=== PATIENT | male | born 1955 | race Caucasian/White ===

== ENCOUNTER 2019-11-06 11:12 | Outpatient (CLI) | payer OTHER, MEDICARE, SELFPAY ==
[2019-11-06 11:59] LABS: Alanine Aminotransferase 47 U/L (4-50); Albumin Level 4.2 g/dL (3.5-5.1); Alkaline Phosphatase 171 U/L (38-126); Aspartate Amino Transferase 30 U/L (17-59); Bilirubin,Total 0.2 mg/dL (0.2-1.3); Blood Urea Nitrogen 14 mg/dL (9-20); Calcium 10.1 mg/dL (8.4-10.2); Carbon Dioxide 26 mmol/L (22-30); Chloride 101 mmol/L (98-107); Estimated Glomerular Filt Rate > 60; Glucose 133 mg/dL (75-110); Potassium 4.4 mmol/L (3.4-5.0); Sodium 139 mmol/L (137-145)
[2019-11-06 12:18] LABS: Hemoglobin A1C 7.4 % (<5.7)
== END 2019-11-06 11:13 | disposition home or self-care (01) ==
LOC: ANHLAB 11:16
PROVIDERS: PCP Family Medicine; Visit Provider Family Medicine
DX: E11.65 Type 2 diabetes mellitus with hyperglycemia (principal)
CPT/HCPCS: 36415; 80053; 83036

== ENCOUNTER 2019-11-08 00:52 | Day surgery (SDC) | payer OTHER, MEDICARE, SELFPAY ==
[2019-11-06 13:26] VITALS: BMI 37.1
[2019-11-08] VITALS (7 sets, daily range): BP systolic 105–131; BP diastolic 60–66; PULSE 75–80; RESP 14–20; TEMP 36.4; O2SAT 93–99
--- NOTE | ~2019-11-08 | XR_ITS ---
EXAMINATION: XR foot RT min 3V DATE: 11/08/2019 09:00 INDICATION: First ray amputation. TECHNIQUE: 4 views of right foot were obtained. COMPARISON: Right foot radiographs 10/03/2019 FINDINGS: There are changes of amputation of right great toe. There are erosions at the head of the f irst metacarpal. There is mild osteoarthritis of many of the interphalangeal joints and midfoot joint s. IMPRESSION: 1. Erosions of the head of the first metatarsal, which may be osteomyelitis and/or surgical change. Reviewed, dictated and finalized at location A. TER (CAD) ELECTRONIC IMPRESSION: 1. Erosions of the head of the first metatarsal, which may be osteomyelitis and /or surgical change.
--- NOTE | 2019-11-08 07:25 | WPDHPUPDATE1 ---
History and Physical Update Update Date/Time: 11/08/19 07:25 History and Physical has been reviewed, including an updated exam of the patient. There are NO changes in the patient's condition. Risks, benefits, and alternatives have been discussed and questions answered. Patient agrees to proceed with procedure.
--- NOTE | 2019-11-08 09:54 | WPDANESEPPF ---
Anes - Initial Pre Proc Eval Procedure: Operation Date: 11/08/19 10:30 Proposed Procedures p Revision Right First Ray Amputation, Debridement Right Diabetic Foot Ulcer with Wound Vac Placement - Jeffrey Louise MD Date/Time: 11/08/19 09:54 Surgeon: Jeffrey Louise MD Pre Op Diagnosis: Right Hallux Wound Dehiscence, right hallux diab Patient Data Age: 64 Gender: M Height: 1.68 m Weight: 104.33 kg Allergies Allergy/AdvReac Type Severity Reaction Status Date / Time imipenem Allergy Mild Itching Verified 11/06/19 13:28 gabapentin Allergy Unknown GOES Verified 11/06/19 13:28 CRAZY PER SPOUSE pregabalin Allergy Unknown GOES Verified 11/06/19 13:28 CRAZY PER SPOUSE Iodinated Contrast Media AdvReac N/V Verified 11/06/19 13:48 iohexol AdvReac n/v Verified 11/06/19 13:48 [From CONTRAST - CT, XRAY] Home Medications Medication Instructions Recorded Confirmed Type Tresiba U-100 Insulin 22 unit SUBCUT HS 10/03/19 11/06/19 History albuterol sulfate [Ventolin HFA] 1 inh INHALATION QID PRN 10/03/19 11/06/19 History amitriptyline 25 mg PO HS 10/03/19 11/06/19 History aspirin [Adult Low Dose Aspirin] 81 mg PO DAILY 10/03/19 11/06/19 History carvedilol 25 mg PO Q12H 10/03/19 11/08/19 History cholecalciferol (vitamin D3) 400 unit PO DAILY 10/03/19 11/06/19 History [Vitamin D3] diltiazem HCl 300 mg PO DAILY 10/03/19 11/08/19 History fluticasone propionate 1 inh INHALATION Q12H PRN 10/03/19 11/06/19 History fluticasone propionate [Flonase 2 spray INTRANASAL DAILY PRN 10/03/19 11/06/19 History Allergy Relief] insulin aspart U-100 [Novolog See Rx Instructions .ROUTE .COMPLEX 10/03/19 11/06/19 History U-100 Insulin aspart] montelukast [Singulair] 10 mg PO DAILY 10/03/19 11/06/19 History rosuvastatin 40 mg PO DAILY 10/03/19 11/06/19 History sitagliptin 50 mg tablet 100 mg PO DAILY #90 tablet 10/03/19 11/06/19 Rx vitamin B complex [B 1 tablet PO DAILY 10/03/19 11/06/19 History Complex-Vitamin B12] alprazolam 0.25 mg tablet 0.25 mg PO TID PRN #120 tablet 10/30/19 11/08/19 Rx furosemide 40 mg tablet 40 mg PO BID 11/02/19 11/06/19 History Patient hx anesthesia problems: none Family hx anesthesia problems: none [facility] Past Medical History Medical History (Updated 11/08/19 @ 09:57 by Lester Blake MD) Alcohol abuse Amputation toe Anxiety Cardiomyopathy CHF (congestive heart failure) COPD (chronic obstructive pulmonary disease) COPD with asthma PFTs in June 2017 showed a discrepancy between FVC and VC consistent with dynamic air trapping. He did have an acute bronchodilator response. Coronary artery disease involving [place] heart without angina pectoris Diabetes 1.5, managed as type 2 Diabetic foot ulcer associated with diabetes mellitus due to underlying condition Diabetic peripheral neuropathy Diabetic polyneuropathy associated with type 2 diabetes mellitus Grade II diastolic dysfunction Pseudonormal diastolic dysfunction grade 2 noted on echocardiogram in June 2017 with ejection fraction of 55%. History of amputation of hallux History of Clostridioides difficile colitis With what sounds like toxic megacolon requiring emergent surgery and total colectomy. History of osteomyelitis Requiring several amputations and subsequent left [id number] amputation. History of shingles Hyperlipidemia Hypertension Insulin dependent diabetes mellitus Complicated by diabetic neuropathy. Hemoglobin A1c was 6.9 in April 2018. Long-term insulin use Multinodular goiter Status post fine-needle aspiration in April 2019, consistent with benign follicular nodule Obstructive sleep apnea treated with BiPAP Paroxysmal atrial fibrillation Peripheral vascular disease Followed by Dr. Mohr in [place]. Surgical History Surgical History History of ileostomy History of inguinal herniorrhaphy Status post below-knee amputation of left lower ext
[2019-11-08 10:29] LABS: Glucose Point of Care 161 (65-105)
[2019-11-08] MEDS: LACTATED RINGERS 1,000 ML 30 ML IV CONT (10:30)
[2019-11-08] MEDS: IBUPROFEN IV 800 MG/200 ML 800 MG/200 ML BAG 400 MG IVPB (10:54)
--- NOTE | 2019-11-08 10:57 | SUR.PREOP ---
1020- ELIZABETH CALLED TO COME SEE PT FOR A IV. 1030- LT FA 20 G PLACED. YESSENIA FROM WOUND CARE CAME TO BRING PT A WOUND VAC WITH SUPPLIES. SPOKE WITH YESSENIA.
[2019-11-08] MEDS: ceFAZolin 2 GM/D5W 50 ML 2 GM/50 ML BAG IVPB (11:03)
[2019-11-08 12:31] LABS: Glucose Point of Care 142 (65-105)
--- NOTE | 2019-11-08 12:36 | P.OP_ITS ---
Procedure Note - Detailed Date of procedure: 11/08/19 Pre-op diagnosis: Right Hallux Wound Dehiscence, right hallux diab Post-op diagnosis: same Procedure performed: Revision right 1st ray amputation, debridement diabetic foot ulcer, application of wound VAC. Description of procedure: Indications: Patient is 64-year-old gentleman with peripheral arterial disease status post left below-knee amputation secondary to left foot gangrene. Developed gangrene of the right hallux. Underwent right hallux amputation 5 weeks ago. Surgery complicated by wound dehiscence and poor wound healing. Now with exposure of the and of the 1st metatarsal and open wound. Presents now for revision amputation and operative treatment. Patient identified in the preoperative holding. Informed consent given. Operative extremity marked. Patient received intravenous antibiotics. Patient brought to the operating room where underwent general anesthetic by anesthesia team. Positioned supine on operating room table. Time-out performed confirming the patient, site of the surgery and the plan. Right lower extremity prepped and draped in usual sterile surgical fashion using a Betadine prep solution. Due to the 1st metatarsal bone exposed through the wound dehiscence the plan was for revision 1st ray amputation. Longitudinal incision made over the dorsomedial aspect of the 1st metatarsal extending to the distal wound dehiscence with a 15 blade knife. Soft tissue carefully and sharply elevated circumferentially around the 1st metatarsal at the proximal 1/3 diaphyseal level. Sagittal saw used to transect the metatarsal which was then brought out of the wound distally. Medial and lateral sesamoids and flexor tendon also sharply excised and removed. Wound thoroughly irrigated and incision closed with 0 Prolene interrupted suture without tension or pressure on the skin. Excisional debridement of the diabetic foot ulcer and wound dehiscence then performed. Fifteen blade knife and rongeur used to sharply excise skin, subcutaneous tissue and muscle that was devitalized or nonviable in a circumferential fashion from the open wound. Tissue passed off. Wound thoroughly irrigated with antibiotic solution. Wound then addressed with a black foam wound VAC assisted dressing. Complete seal intact and ensured. Gauze dressing then applied over. Patient awoke from anesthesia, extubated and taken to the recovery room in stable condition. All sponge needle and instrument counts correct in the case. Implants: Wound VAC dressing Anesthesia: GLMA Surgeon: Jeffrey Louise MD Watch Repairer Apprentice: 1st visual merchandising assistant Estimated blood loss (mL): 50 Tourniquet time (min): 0 Drains: Yes (Wound VAC) Packing: Yes (Wound VAC) Pathology: none sent Complications: None Condition: stable Disposition: PACU Findings: Wound dehiscence with devitalized skin and soft tissue 1st ray/hallux. Proximal metatarsal transection with good bleeding bone surface and good bleeding soft tissue surrounding at that level. Remaining skin with good blood flow.
== END 2019-11-08 14:20 | disposition home or self-care (01) ==
PROVIDERS: PCP Family Medicine; Visit Provider Orthopaedic Surgery
PROC: (CPT 28810; principal; 2019-11-08 10:30)
DX: T81.31XA Disruption of external operation (surgical) wound, not elsewhere classified, initial encounter (principal); E13.621 Other specified diabetes mellitus with foot ulcer; L97.519 Non-pressure chronic ulcer of other part of right foot with unspecified severity; Y83.8 Other surgical procedures as the cause of abnormal reaction of the patient, or of later complication, without mention of misadventure at the time of the procedure; E13.42 Other specified diabetes mellitus with diabetic polyneuropathy; E13.51 Other specified diabetes mellitus with diabetic peripheral angiopathy without gangrene; I11.0 Hypertensive heart disease with heart failure; I50.30 Unspecified diastolic (congestive) heart failure; I48.0 Paroxysmal atrial fibrillation; J44.9 Chronic obstructive pulmonary disease, unspecified; I25.10 Atherosclerotic heart disease of native coronary artery without angina pectoris; E78.5 Hyperlipidemia, unspecified; G47.33 Obstructive sleep apnea (adult) (pediatric); Z79.4 Long term (current) use of insulin; Z79.82 Long term (current) use of aspirin; Z89.512 Acquired absence of left leg below knee; Z90.49 Acquired absence of other specified parts of digestive tract; Z87.891 Personal history of nicotine dependence; E66.9 Obesity, unspecified; Z68.37 Body mass index [BMI] 37.0-37.9, adult
CPT/HCPCS: 28810; 11042; 73630; A9270; J0690; J1100; J1170; J1741; J2250; J2405; J2704; J3010; J7120

== ENCOUNTER 2019-11-19 07:00 | Outpatient (RCR) | payer OTHER, MEDICARE, SELFPAY ==
[2019-09-21 15:30] VITALS: BMI 38.3
--- NOTE | 2019-10-23 11:01 | P.PNOP_ITS ---
Progress Note: A&P Assessment and Plan (1) Amputation toe: Qualifiers: Laterality: right Qualified Code(s): S98.131A - Complete traumatic amputation of one right lesser toe, initial encounter Code(s): S98.139A - Complete traumatic amputation of one unspecified lesser toe, initial encounter Status: Acute Assessment and Plan: [facility] wound clinic evaluation 2 weeks, 4 days s/p right hallux amputation. Incision with necrotic tissue and mild redness which is relieved with elevation, no warmth. No purulence. No malodor. Mild serousanguinous drainage. Sutures removed. No visible bone but able to probe to bone. Patient denies signs of infection including nausea, vomiting, diarrhea, fever and chills. Recommended beginning daily dressing changes with Santyl, vaseline gauze and cover dry. Fracture boot. Minimal weight bearing. Discussed possible need for further debridement in the future, verbalized understanding. Will continue to monitor at this time. Follow up in 1 week. Subjective Subjective Date/Time Seen: 10/23/19 11:01 2 weeks, 4 days s/p RIGHT hallux amputation. Patient feeling well. No complaints of abdominal pain at this time. Review of Systems Constitutional: Constitutional: Denies chills, Denies fatigue and Denies weakness Cardiovascular: Cardiovascular: Denies chest pain Respiratory: Respiratory: Reports no additional respiratory complaints and Denies dyspnea Gastrointestinal: Gastrointestinal: Denies abdominal pain, Denies bloating, Denies diarrhea, Denies nausea and Denies vomiting Genitourinary: Genitourinary: Reports no additional male genitourinary com plaints Musculoskeletal: Musculoskeletal: Reports numbness (baseline neuropathy ) and Reports tingling (baseline neuropathy ) Comments: No pain right foot Exam Const: General: comfortable and no acute distress HENMT: Mouth: Yes moist mucous membranes Eyes: General: appearance normal, both eyes and all related structures Neck: Neck: supple and no JVD Resp: Effort & Inspection: normal respiratory effort Cardio: Rate: regular rate Rhythm: regular rhythm GI: GI Palp: Yes Soft to palpation Other: Well-healed mid abdominal scar. Ileostomy Right Middle Quadrant Skin: General skin exam: erythema Wounds: wounds noted Other: See extremity exam Neuro: Cognition (Neuro): normal cognition Speech: normal speech Sensory Exam: No normal sensation Extrem: Right lower extremity: hip/thigh, knee, lower leg and foot Left lower extremity: hip/thigh, knee and lower leg (BKA ) Other: Right hallux amp incision with surrounding necrotic tissue. Sutures removed. No visible bone but able to probe to bone. Santyl, vaseline gauze dressing applied to right hallux. Mild serousanguinous drainage. Right heel without signs of infection. Left BKA. Incision well-healed. No signs of infection. Psych: Mental Status: mental status grossly normal Objective Data Meds/Results Medications: Active Medications Generic Name Dose Route Start Last Admin Trade Name Freq PRN Reason Stop Dose Admin Collagenase 1 applic 09/21/19 14:53 Santyl Oint TOPICAL 12/21/19 10:00 PRN PRN Wound Care Wound Care/Dressing Products 2 each 09/21/19 14:54 Mepilex 4x4 Foam Bandage TOPICAL 12/21/19 10:00 PRN PRN Wound Care
--- NOTE | 2019-11-12 12:28 | PM.PNORT ---
Progress Note: A&P Assessment and Plan (1) Diabetic polyneuropathy associated with type 2 diabetes mellitus: Code(s): E11.42 - Type 2 diabetes mellitus with diabetic polyneuropathy Status: Acute (2) Diabetic foot ulcer associated with diabetes mellitus due to underlying condition: Qualifiers: Diabetic foot ulcer location: toe Laterality: right Non-pressure ulcer stage: with bone involvement without evidence of necrosis Qualified Code(s): E08.621 - Diabetes mellitus due to underlying condition with foot ulcer; L97.516 - Non-pressure chronic ulcer of other part of right foot with bone involvement without evidence of necrosis Code(s): E08.621 - Diabetes mellitus due to underlying condition with foot ulcer; L97.509 - Non-pressure chronic ulcer of other part of unspecified foot with unspecified severity Status: Acute Assessment and Plan: Postop day number for right 1st ray revision amputation and placement of wound VAC. Patient presented today with problems of his wound VAC. The wound VAC dressing was changed. The amputation site appears viable. New wound VAC dressing applied. Plan for Tuesday wound VAC dressing changes. May continue with partial weight-bearing on the heel only with postoperative shoe. Reinforced need for elevation and pressure offloading for most of the time. Patient and family verbalized understanding. (3) Peripheral vascular disease: Code(s): I73.9 - Peripheral vascular disease, unspecified Status: Acute Subjective Subjective Date/Time Seen: 11/12/19 10:30 Patient telephone the office notifying of the wound VAC on the right foot was occluded and not functioning. Patient directed to present to the wound clinic for evaluation. No other complaints. No fever chills. Minimal pain. Review of Systems Constitutional: Constitutional: Denies chills, Denies fatigue and Denies weakness Cardiovascular: Cardiovascular: Denies chest pain Respiratory: Respiratory: Reports no additional respiratory complaints and Denies dyspnea Gastrointestinal: Gastrointestinal: Denies abdominal pain, Denies bloating, Denies diarrhea, Denies nausea and Denies vomiting Genitourinary: Genitourinary: Reports no additional male genitourinary complaints Musculoskeletal: Musculoskeletal: Reports numbness (baseline neuropathy ) and Reports tingling (baseline neuropathy ) Comments: No pain right foot Exam Const: General: comfortable and no acute distress HENMT: Mouth: Yes moist mucous membranes Eyes: General: appearance normal, both eyes and all related structures Neck: Neck: supple and no JVD Resp: Effort & Inspection: normal respiratory effort Cardio: Rate: regular rate Rhythm: regular rhythm GI: GI Palp: Yes Soft to palpation Other: Well-healed mid abdominal scar. Ileostomy Right Middle Quadrant Skin: General skin exam: erythema Wounds: wounds noted Other: See extremity exam Neuro: Cognition (Neuro): normal cognition Speech: normal speech Sensory Exam: No normal sensation Extrem: Right lower extremity: hip/thigh, knee, lower leg and foot Left lower extremity: hip/thigh, knee and lower leg (BKA ) Other: Right hallux amp incision wound VAC dressing removed. Wound measured in wound clinic. Skin edges appear viable. Sutures intact. No visible bone or tendon. Mild erythema through the right forefoot. No active drainage. No palpable pulses. Right heel without signs of infection. Left BKA. Incision well-healed. No signs of infection. Psych: Mental Status: mental status grossly normal Objective Data Meds/Results Medications: Active Medications Generic Name Dose Route Start Last Admin Trade Name Freq PRN Reason Stop Dose Admin Collagenase 1 applic 09/21/19 14:53 Santyl Oint TOPICAL 12/21/19 10:00 PRN PRN Wound Care Wound Care/Dressing Products 2 each 09/21/19 14:54 Mepilex 4x4 Foam Bandage TOPICAL 12/21/19 10:00
--- NOTE | 2019-11-16 09:08 | P.PNWOUND_ITS ---
Wound Care Note Date/Time: 11/16/19 09:08 Patient presents for wound VAC dressing change to the [facility] wound clinic. No new complaints with the right foot or any new systemic complaints. Problems with function with a wound VAC with the unit turning off on its own. Assessment and Plan Assessment and plan (1) Gangrene of toe of right foot: Code(s): I96 - Gangrene, not elsewhere classified Status: Acute Assessment and Plan: Postoperative day 8. Wound VAC change today. Will swap out wound VAC unit for better function at home. Continue with planned wound VAC dressing changes Tuesday, Tuesday, Tuesday. Notify office for any changes or problems. Review of Systems 2 Constitutional: Constitutional: Denies chills, Denies fatigue and Denies we akness Cardiovascular: Cardiovascular: Denies chest pain Respiratory: Respiratory: Reports no additional respiratory complaints and Denies dyspnea Gastrointestinal: Gastrointestinal: Denies abdominal pain, Denies bloating, Denies diarrhea, Denies nausea and Denies vomiting Genitourinary: Genitourinary: Reports no additional male genitourinary complaints Musculoskeletal: Musculoskeletal: Reports numbness (baseline neuropathy ) and Reports tingling (baseline neuropathy ) Comments: No pain right foot Exam Const: General: comfortable and no acute distress HENMT: Mouth: Yes moist mucous membranes Eyes: General: appearance normal, both eyes and all related structures Neck: Neck: supple and no JVD Resp: Effort & Inspection: normal respiratory effort Cardio: Rate: regular rate Rhythm: regular rhythm GI: GI Palp: Yes Soft to palpation Other: Well-healed mid abdominal scar. Ileostomy Right Middle Quadrant Skin: General skin exam: erythema Wounds: wounds noted Other: See extremity exam Neuro: Cognition (Neuro): normal cognition Speech: normal speech Sensory Exam: No normal sensation Extrem: Right lower extremity: hip/thigh, knee, lower leg and foot Left lower extremity: hip/thigh, knee and lower leg (BKA ) Other: Right hallux amp incision wound VAC dressing removed. Wound measured in wound clinic. Length 8 cm, with 4 cm, depth of 3.2 cm skin edges appear viable. Sutures intact. No visible bone or tendon. Mild erythema through the right forefoot. No active drainage. No palpable pulses. Right heel without signs of infection. Left BKA. Incision well-healed. No signs of infection. Psych: Mental Status: mental status grossly normal
== END 2019-12-20 23:59 | disposition home or self-care (01) ==
LOC: ANHWOC 07:00
PROVIDERS: PCP Family Medicine; Visit Provider Orthopaedic Surgery
DX: E11.621 Type 2 diabetes mellitus with foot ulcer (principal); L97.519 Non-pressure chronic ulcer of other part of right foot with unspecified severity
CPT/HCPCS: 97606; 99212; 99213; 99214; G0463

== ENCOUNTER 2019-11-19 08:15 | Inpatient (IN) | payer OTHER, MEDICARE, SELFPAY ==
[2019-11-19] VITALS (8 sets, daily range): BP systolic 106–173; BP diastolic 56–85; PULSE 70–95; RESP 14–18; TEMP 36.3–36.6; O2SAT 95–99; BMI 34.2
--- NOTE | ~2019-11-19 | XR_ITS ---
EXAMINATION: XR foot RT 2V EXAM DATE: 11/19/2019 10:37 INDICATION: Infection. TECHNIQUE: Frontal and lateral projections of the right foot Comparison is made to prior examination from 11/08/2019. FINDINGS: Status post right first transmetatarsal amputation. Expected appearance to the surgical be d. There are no bony erosions identified. There is mild scattered polyarticular primary osteoarthriti s. No radiopaque foreign bodies identified. There are arterial calcifications, arteriosclerosis. IMPRESSION: Status post right first transmetatarsal amputation. No erosive change. Reviewed, dictated and finalized at location A. [employer]ATE GIVING MANAGER IMPRESSION: Status post right first transmetatarsal amputation. No erosive papito nge.
--- NOTE | ~2019-11-19 | US_ITS ---
EXAMINATION: US arterial duplex LE DATE: 11/20/2019 17:01 INDICATION: Peripheral vascular disease. TECHNIQUE: Multiple grayscale and Doppler ultrasound images of the arteries of the bilateral lower li mbs were obtained. COMPARISON: None FINDINGS: Right lower limb Doppler: peak systolic velocity; waveform. Common femoral artery: 62 cm/s; triphasic. Superficial femoral artery proximal:------ 46 cm/s; triphasic. Superficial femoral artery distal: 40 cm/s; triphasic. Popliteal artery:------ 39 cm/s; triphasic. Gastrocnemius artery: 43 cm/s; triphasic. Proximal posterior tibial artery:------ 34 cm/s; triphasic. Anterior tibial artery:------ 16 cm/s; triphasic. Left lower limb Doppler: peak systolic velocity; waveform. Common femoral artery: 71 cm/s; triphasic. Profunda femoral artery proximal :------ 48 cm/s; triphasic. Profunda femoral artery distal :------ 63 cm/s; triphasic Superficial femoral artery proximal : 44 cm/s; triphasic. Superficial femoral artery distal: 56 cm/s; triphasic. Popliteal artery proximal :------ 35 cm/s; triphasic. Popliteal artery distal : 0 cm/s; triphasic. The more distal arteries are not visualized due to prior [id number] amputation. IMPRESSION: 1. Normal triphasic waveforms with brisk systolic upstrokes throughout both lower extremities. Reviewed, dictated and finalized at location A. R ACCOMPANIST IMPRESSION: 1. Normal triphasic waveforms with brisk systolic upstrokes throughout both low er extremities.
--- NOTE | 2019-11-19 09:00 | ED.EXTPRO ---
HPI - Extremity Problem General Chief complaint: Extremity Problem,Nontraumatic Stated complaint: right foot infection Time Seen by Provider: 11/19/19 08:32 Source: patient, family and old records reviewed Mode of arrival: ambulatory Limitations: no limitations History of Present Illness HPI Narrative: Patient is a 64-year-old male who presents from wound care clinic for evaluation of worsening right foot infection patient has wound to the right foot patient had recent amputation of the great toe had debridement on the sixth by Dr. Boyd patient was in wound care for follow-up today noting increasing redness and now discoloration of the second digit patient notes mild aching pain worse with any activity and movement history of diabetes mellitus patient notes he has had some nausea and vomiting for the last 2 days denies fever Related Data Home Medications Medication Instructions Recorded Confirmed albuterol sulfate [Ventolin HFA] 1 inh INHALATION QID PRN 10/03/19 11/06/19 amitriptyline 25 mg PO HS 10/03/19 11/06/19 aspirin [Adult Low Dose Aspirin] 81 mg PO DAILY 10/03/19 11/06/19 carvedilol 25 mg PO Q12H 10/03/19 11/08/19 cholecalciferol (vitamin D3) 400 unit PO DAILY 10/03/19 11/06/19 [Vitamin D3] diltiazem HCl 300 mg PO DAILY 10/03/19 11/08/19 fluticasone propionate 1 inh INHALATION Q12H PRN 10/03/19 11/06/19 fluticasone propionate [Flonase 2 spray INTRANASAL DAILY PRN 10/03/19 11/06/19 Allergy Relief] insulin aspart U-100 [Novolog See Rx Instructions .ROUTE .COMPLEX 10/03/19 11/06/19 U-100 Insulin aspart] montelukast [Singulair] 10 mg PO DAILY 10/03/19 11/06/19 rosuvastatin 40 mg PO DAILY 10/03/19 11/06/19 vitamin B complex [B 1 tablet PO DAILY 10/03/19 11/06/19 Complex-Vitamin B12] furosemide 40 mg tablet 40 mg PO BID 11/02/19 11/06/19 Allergies Allergy/AdvReac Type Severity Reaction Status Date / Time imipenem Allergy Mild Itching Verified 11/19/19 08:41 gabapentin Allergy Unknown GOES Verified 11/19/19 08:41 CRAZY PER SPOUSE pregabalin Allergy Unknown GOES Verified 11/19/19 08:41 CRAZY PER SPOUSE Iodinated Contrast Media AdvReac Severe Hypotension Verified 11/19/19 11:59 iohexol AdvReac Severe Hypotension Verified 11/19/19 11:59 [From CONTRAST - CT, XRAY] Review of Systems Review of Systems: All systems reviewed & are unremarkable except as noted in HPI and below PMFSH Past Medical History Medical History Alcohol abuse Amputation toe Anxiety Cardiomyopathy CHF (congestive heart failure) COPD (chronic obstructive pulmonary disease) COPD with asthma PFTs in June 2017 showed a discrepancy between FVC and VC consistent with dynamic air trapping. He did have an acute bronchodilator response. Coronary artery disease involving [place] heart without angina pectoris Diabetes 1.5, managed as type 2 Diabetic foot ulcer associated with diabetes mellitus due to underlying condition Diabetic peripheral neuropathy Diabetic polyneuropathy associated with type 2 diabetes mellitus Grade II diastolic dysfunction Pseudonormal diastolic dysfunction grade 2 noted on echocardiogram in June 2017 with ejection fraction of 55%. History of amputation of hallux History of Clostridioides difficile colitis With what sounds like toxic megacolon requiring emergent surgery and total colectomy. History of osteomyelitis Requiring several amputations and subsequent left [id number] amputation. History of shingles Hyperlipidemia Hypertension Insulin dependent diabetes mellitus Complicated by diabetic neuropathy. Hemoglobin A1c was 6.9 in April 2018. Long-term insulin use Multinodular goiter Status post fine-needle aspiration in April 2019, consistent with benign follicular nodule Obstructive sleep apnea treated with BiPAP Paroxysmal atrial fibrillation Peripheral vascular disease Followed by Dr. Mohr in [place]. Surgical History
[2019-11-19 09:31] LABS: Basophils Absolute Auto 0.1 K/mm3 (0.0-0.1); Basophils Percent Auto 0.4 % (0.2-1.2); Eosinophils Absolute Auto 0.3 K/mm3 (0-0.3); Eosinophils Percent Auto 1.6 % (0-4.4); Hematocrit 37.6 % (42.0-52.0); Hemoglobin 12.4 g/dL (14.0-18.0); Immature Granulocyte Absolute 0.11 K/mm3 (0.00-0.031); Immature Granulocyte Percent A 0.6 % (0-0.5); Lymphocytes Absolute Auto 1.57 K/mm3 (0.9-3.2); Lymphocytes Percent Auto 8.6 % (18.3-44.2); Mean Corpuscular Hemoglobin 29.5 pg (26-34); Mean Corpuscular Volume 89.3 fl (80-100); Mean Platelet Volume 10.5 fl (7.4-10.4); Monocytes Absolute Auto 1.7 K/mm3 (0.1-0.6); Neutrophils Absolute Auto 14.6 K/mm3 (1.3-6.7); Neutrophils Percent Auto 79.8 % (45.5-73.1); Platelet Count Result 354 k/mm3 (150-375); Red Blood Count 4.21 M/mm3 (4.6-6.20); Red Cell Distribution Width 12.5 % (11.5-14.5); White Blood Count 18.3 K/mm3 (4.5-10.0)
[2019-11-19 09:41] LABS: INR 1.1
[2019-11-19 09:42] LABS: Partial Thromboplastin Time 32.3 SECONDS (22.3-36.8)
[2019-11-19 09:45] LABS: Alanine Aminotransferase 76 U/L (4-50); Albumin Level 4.2 g/dL (3.5-5.1); Alkaline Phosphatase 275 U/L (38-126); Aspartate Amino Transferase 61 U/L (17-59); Bilirubin,Total 0.6 mg/dL (0.2-1.3); Blood Urea Nitrogen 18 mg/dL (9-20); Calcium 10.3 mg/dL (8.4-10.2); Carbon Dioxide 21 mmol/L (22-30); Chloride 93 mmol/L (98-107); Estimated CRCL calculation 82 ml/min; Estimated Glomerular Filt Rate > 60; Glucose 191 mg/dL (75-110); Potassium 3.7 mmol/L (3.4-5.0); Sodium 134 mmol/L (137-145)
[2019-11-19 09:59] LABS: CRP 20.1 mg/dL (<1.0)
[2019-11-19] MEDS: SODIUM CHLORIDE 0.9% IV 1,000 ML 999 ML IV CONT (10:20)
[2019-11-19 10:26] LABS: Add Urine Microscopic? YES; Appearance Urine Clear (Clear); Bacteria Urine Trace /hpf; Bilirubin Urine Negative (Negative); Blood Urine 2+ (Negative); Budding Yeast Urine Present /hpf; Color Urine Yellow (Yellow); Glucose Urine UA Negative (Negative); Ketones Urine 1+ mg/dL (Negative); Leukocyte Esterase Ur 1+ LEU/UL (Negative); Mucus Urine Heavy /lpf; Nitrate Urine Negative (Negative); Protein Urine 2+ mg/dL (Negative); Specific Grav Ur 1.021 (1.001-1.035); Urobilinogen Urine Negative mg/dL (<2.0); WBC Urine 31-50 /hpf
[2019-11-19] MEDS: MORPHINE SULFATE 4 MG/ML INJ IV PUSH ×2 (10:40→16:33)
--- NOTE | 2019-11-19 12:40 | ADMGEN ---
This patient, Lee Burkett, was admitted to Medical Room 342-01. Patient/family oriented to hospital policies and general routines including ID bracelet, bed and alarms, visiting hours, pain management, procedures, bathroom and other care routines, personal items, smoking policy, room service/diet, and visiting hours. Valuables list has been completed. Information on how to activate the Rapid Response Team has been discussed. Patient/Family are encouraged to report perceived risks to care and to ask questions if they do not understand what they are told or what they should do.
[2019-11-19] MEDS: LACTATED RINGERS 1,000 ML 75 ML IV CONT (12:51)
--- NOTE | 2019-11-19 13:35 | PM.IMHP ---
H&P: HPI History of Present Illness Chief complaint: CELLULITIS DIABETIC FOOT Narrative: Lee Burkett is a 64 year old male that presented to the ED today after being sent over by wound care for evaluation of a right foot ulcer that has significantly worsened.He has had the right great toe amputation on 10 05 2019 with furrther right great toe debridement on 11/08/[address] Boyd. Patient reports over the last 24 hours, 2nd right toe has become an angry purplish-blue in color and the wound bed from the right great toe amputation has an increase in eschar. Patient reports pain medication helps with the pain but ambulating increases the pain significantly. Patient has been admitted and Dr. Boyd will follow for wound management. He has been going to wound care for treament and his wound vac was taken off today. He stated that the second right toe just became black over night. He is having great pain to his great foot which is worsened by ambulation. He was taking pain medication at home. He did not notice any drainage from the right foot. Date of service 11/19/2019. Review of Systems Review of Systems: All systems reviewed & are unremarkable except as noted in HPI and below Constitutional: Constitutional: Reports as per HPI Eyes: Eyes: Reports as per HPI ENT: Reports system reviewed and no additional complaints, except as documented and Reports Normal hearing present Cardiovascular: Cardiovascular: Reports as per HPI, Reports no additional cardiovascular complaints and Reports claudication (Right lower extremity) Respiratory: Respiratory: Reports as per HPI and Reports no additional respiratory complaints Gastrointestinal: Gastrointestinal: Reports as per HPI Comments: Patient has an ileostomy due to ruptured bowel from c-diff. Patient stated that his stomach is upset and that he has had some vomiting as well. Genitourinary: Genitourinary: Reports no additional male genitourinary complaints and Reports as per HPI Musculoskeletal: Musculoskeletal: Reports no additional musculoskeletal complaints and Reports as per HPI Integumentary/Breasts: Skin/Breast: Reports system reviewed and no additional complaints, except as docu, Reports as per HPI, Reports change in pigmentation and Reports non-healing lesions (Right foot ulceration) Comments: Right foot 2nd toe is a purplish-blue in color. Neurologic: Reports system reviewed and no additional complaints, except as documented, Reports as per HPI and Reports Normal hearing present Psychiatric: Psychiatric: Reports no additional psychiatric complaints, Reports as per HPI and Reports anxiety Endocrine: Endocrine: Reports no additional endocrine complaints and Reports as per HPI Hematologic/Lymphatic: Hematologic/Lymphatic: Reports no additional hematologic/lymphatic complaints and Reports as per HPI Allergic/Immunologic: Allergic/Immunologic: Reports no additional allergic/immunologic complaints and Reports as per HPI [facility] Past Medical History Medical History (Updated 11/19/19 @ 14:49 by Deepa Dyer NP) Alcohol abuse Amputation toe Anxiety Cardiomyopathy CHF (congestive heart failure) COPD (chronic obstructive pulmonary disease) COPD with asthma PFTs in June 2017 showed a discrepancy between FVC and VC consistent with dynamic air trapping. He did have an acute bronchodilator response. Coronary artery disease involving [place] heart without angina pectoris Diabetes 1.5, managed as type 2 Diabetic foot ulcer associated with diabetes mellitus due to underlying condition Diabetic peripheral neuropathy Diabetic polyneuropathy associated with type 2 diabetes mellitus Grade II diastolic dysfunction Pseudonormal diastolic dysfunction grade 2 noted on echocardiogram in June 2017 with ejection fraction of 55%. History of amputation of hallux History of Clostridioides difficile colitis With what sounds like toxic megacolon requiring emergent surgery and total colectomy. History of
[2019-11-19] MEDS: ONDANSETRON INJ 4 MG/2 ML VIAL IV PUSH (16:33)
[2019-11-19 17:16] LABS: Glucose Point of Care 156 (65-105)
[2019-11-19] MEDS: carvediloL 25 MG TABLET PO (21:20)
[2019-11-19] MEDS: FAMOTIDINE 20 MG/2 ML VIAL IV PUSH (21:20)
[2019-11-19] MEDS: AMITRIPTYLINE HCL 25 MG TABLET PO (21:20)
[2019-11-19 22:50] LABS: Glucose Point of Care 117 (65-105)
[2019-11-20] VITALS (7 sets, daily range): BP systolic 113–123; BP diastolic 50–83; PULSE 73–94; RESP 16–17; TEMP 36.4–37; O2SAT 96–100; BMI 34.2
[2019-11-20] MEDS: LACTATED RINGERS 1,000 ML 75 ML IV CONT ×2 (03:55→20:29)
[2019-11-20 06:12] LABS: Basophils Absolute Auto 0.1 K/mm3 (0.0-0.1); Basophils Percent Auto 0.4 % (0.2-1.2); Eosinophils Absolute Auto 0.4 K/mm3 (0-0.3); Eosinophils Percent Auto 2.2 % (0-4.4); Hematocrit 36.4 % (42.0-52.0); Hemoglobin 11.7 g/dL (14.0-18.0); Immature Granulocyte Absolute 0.11 K/mm3 (0.00-0.031); Immature Granulocyte Percent A 0.7 % (0-0.5); Lymphocytes Absolute Auto 1.08 K/mm3 (0.9-3.2); Lymphocytes Percent Auto 6.8 % (18.3-44.2); Mean Corpuscular HGB Conc 32.1 g/dl (32-36); Mean Corpuscular Hemoglobin 29.3 pg (26-34); Mean Platelet Volume 10.9 fl (7.4-10.4); Monocytes Absolute Auto 1.5 K/mm3 (0.1-0.6); Monocytes Percent Auto 9.6 % (2.6-8.5); Neutrophils Absolute Auto 12.7 K/mm3 (1.3-6.7); Neutrophils Percent Auto 80.3 % (45.5-73.1); Platelet Count Result 345 k/mm3 (150-375); Red Cell Distribution Width 12.6 % (11.5-14.5); White Blood Count 15.8 K/mm3 (4.5-10.0)
[2019-11-20 06:28] LABS: Alanine Aminotransferase 49 U/L (4-50); Albumin Level 3.9 g/dL (3.5-5.1); Alkaline Phosphatase 211 U/L (38-126); Aspartate Amino Transferase 25 U/L (17-59); Bilirubin,Total 0.3 mg/dL (0.2-1.3); Blood Urea Nitrogen 10 mg/dL (9-20); Calcium 9.7 mg/dL (8.4-10.2); Carbon Dioxide 25 mmol/L (22-30); Chloride 96 mmol/L (98-107); Estimated CRCL calculation 88 ml/min; Estimated Glomerular Filt Rate > 60; Glucose 170 mg/dL (75-110); Potassium 3.5 mmol/L (3.4-5.0); Sodium 135 mmol/L (137-145)
[2019-11-20 07:44] LABS: Glucose Point of Care 160 (65-105)
[2019-11-20] MEDS: VITAMIN B COMPLEX CAPSULE 1 CAP PO (09:05)
[2019-11-20] MEDS: carvediloL 25 MG TABLET PO ×2 (09:05→20:28)
[2019-11-20] MEDS: MONTELUKAST SODIUM 10 MG TABLET PO (09:06)
[2019-11-20] MEDS: ROSUVASTATIN 10 MG TABLET 40 MG PO (09:06)
[2019-11-20] MEDS: CHOLECALCIFEROL 400 UNITS TABLET (VIT D) PO (09:06)
[2019-11-20] MEDS: ASPIRIN 81 MG ENTERIC TABLET PO (09:06)
[2019-11-20] MEDS: FAMOTIDINE 20 MG/2 ML VIAL IV PUSH ×2 (09:07→20:28)
[2019-11-20] MEDS: INSULIN GLARGINE (*BKC) 100 UNITS/ML 25 UNITS SUB-Q (09:07)
[2019-11-20] MEDS: MORPHINE SULFATE 4 MG/ML INJ IV PUSH ×3 (09:08→19:50)
--- NOTE | 2019-11-20 10:59 | PCOTNOTE ---
Attempted OT evaluation, per KOKO Arevalo, hold therapy evaluation today second to pt medical status and potential orthopedic surgery tomorrow. Will attempt when appropriate.
[2019-11-20] MEDS: SOD HYPOCHLORITE 1/4 STRENGTH 473 ML 1 APPLIC TOPICAL ×2 (11:33→20:28)
[2019-11-20 11:38] LABS: Glucose Point of Care 188 (65-105)
[2019-11-20 15:14] LABS: Cholesterol 106 mg/dL (0-200); HDL Direct 26 mg/dL; Triglycerides 141 mg/dL (<150)
[2019-11-20 15:25] LABS: LDL Cholesterol Direct 44 mg/dL
--- NOTE | 2019-11-20 15:36 | PM.CNOR ---
Assessment and Plan Assessment and plan (1) Peripheral vascular disease: Code(s): I73.9 - Peripheral vascular disease, unspecified Status: Acute Assessment and Plan: further necrotic changes in gangrene of the right foot involving the postoperative wound as well as now the 2nd toe and the dorsum of the foot. Elevated white count upon admission. Patient started on intravenous antibiotics. Updated history, physical exam and radiographs reviewed with the patient. Interval changes reviewed. Discussed the condition, nature, etiology and course of natural history with the patient. Treatment options including surgical and nonoperative treatment were reviewed. Risks and benefits of each as well as alternatives reviewed. The patient's questions were answered. Patient and family aware of the grim prognosis associated with his arterial disease and foot gangrene. Continue to stabilize patient with intravenous antibiotics, blood pressure control, blood sugar control. Will re-evaluate foot over the next 24 hours. Discussed option of further debridement versus below-knee amputation. We will base treatment on further progression of gangrene. (2) Diabetic foot ulcer associated with diabetes mellitus due to underlying condition: Qualifiers: Diabetic foot ulcer location: toe Laterality: right Non-pressure ulcer stage: with bone involvement without evidence of necrosis Qualified Code(s): E08.621 - Diabetes mellitus due to underlying condition with foot ulcer; L97.516 - Non-pressure chronic ulcer of other part of right foot with bone involvement without evidence of necrosis Code(s): E08.621 - Diabetes mellitus due to underlying condition with foot ulcer; L97.509 - Non-pressure chronic ulcer of other part of unspecified foot with unspecified severity Status: Acute (3) Amputation toe: Qualifiers: Laterality: right Qualified Code(s): S98.131A - Complete traumatic amputation of one right lesser toe, initial encounter Code(s): S98.139A - Complete traumatic amputation of one unspecified lesser toe, initial encounter Status: Acute History of Present Illness HPI Consult date: 11/20/19 Requesting physician: Bar Christianson PA-C Consult reason: other Chief complaint: CELLULITIS DIABETIC FOOT Narrative: 64-year-old gentleman with a history of severe peripheral arterial disease, diabetes and peripheral neuropathy who is currently being treated for right foot gangrene. Status post 1st ray amputation 3 weeks ago. Was currently being treated with a wound VAC. Noted color changes and dysvascular parents to the right foot surgical wound 2 days ago. Then became worse overnight and presented to the wound clinic and emergency room at [facility]. No injury or known cause. No systemic complaints. Patient is status post left below-knee amputation secondary to peripheral arterial disease. Discussion with his vascular surgeon as revealed that no further intervention can be done for his arterial vascular status. Review of Systems Constitutional: Constitutional: Denies chills, Denies fatigue and Denies weakness Cardiovascular: Cardiovascular: Denies chest pain Respiratory: Respiratory: Reports no additional respiratory complaints and Denies dyspnea Gastrointestinal: Gastrointestinal: Denies abdominal pain, Denies bloating, Denies diarrhea, Denies nausea and Denies vomiting Genitourinary: Genitourinary: Reports no additional male genitourinary complaints Musculoskeletal: Musculoskeletal: Reports numbness (baseline neuropathy ) and Reports tingling (baseline neuropathy ) Comments: No pain right foot Integumentary/Breasts: Skin/Breast: Reports non-healing lesions ( Right foot) Neurologic: Reports Sensory deficit (Neuro) ( right foot, left hand) and Reports weakness ( left hand) Psychiatric: Psychiatric: Denies anxiety Endocrine: Endocrine: Denies heat intolerance Hematologic/Lymphatic: Hem
[2019-11-20] MEDS: ONDANSETRON INJ 4 MG/2 ML VIAL IV PUSH (17:04)
[2019-11-20 17:20] LABS: Glucose Point of Care 183 (65-105)
--- NOTE | 2019-11-20 17:24 | PM.IMPN ---
Progress Note: A&P Assessment and Plan (1) Cellulitis in diabetic foot: Code(s): E11.628 - Type 2 diabetes mellitus with other skin complications; L03.119 - Cellulitis of unspecified part of limb Status: Chronic Assessment and Plan: 11/20/19 17:24 Patient is 64-year-old male with history of uncontrolled diabetes and peripheral vascular disease patient with chronic diabetic foot ulcer and status post amputation of the toes and debridement of the wound had been seen by at the wound clinic and was referred back to the emergency department is wound is getting progressively worse, patient was seen by orthopedic surgeon and evaluate the patient, wanted to continue IV antibiotics for now continue to monitor and patient may need further amputation of his right foot, consulted management aide to further evaluate vascular patency of the wound, currently patient denies any fever or chills, patient is wound treated with vancomycin will add Unasyn to provide broad coverage (2) S/P debridement: Code(s): Z98.890 - Other specified postprocedural states Status: Acute Assessment and Plan: Treat with vancomycin as ordred. Will add True, Dr. Boyd to follow.wound vac off (3) Peripheral vascular disease: Code(s): I73.9 - Peripheral vascular disease, unspecified Status: Acute Assessment and Plan: Monitor pulses. has been seen by Dr. BEARDEN (4) CHF (congestive heart failure): Code(s): I50.9 - Heart failure, unspecified Status: Chronic Assessment and Plan: Continue furosemide as ordred. correg (5) Diabetes 1.5, managed as type 2: Code(s): E13.9 - Other specified diabetes mellitus without complications Status: Chronic Assessment and Plan: Monitor blood glucose ac/hs. Continue with Novolog sliding scale. Continue with Januvia and Lantus. (6) COPD (chronic obstructive pulmonary disease): Code(s): J44.9 - Chronic obstructive pulmonary disease, unspecified Status: Chronic Assessment and Plan: Continue with ventolin as ordered.singular (7) Diabetic polyneuropathy associated with type 2 diabetes mellitus: Code(s): E11.42 - Type 2 diabetes mellitus with diabetic polyneuropathy Status: Acute Assessment and Plan: keep sugars under control (8) Gastroesophageal reflux disease without esophagitis: Code(s): K21.9 - Gastro-esophageal reflux disease without esophagitis Status: Acute Assessment and Plan: Zofran PRN for nausea. (9) HLD (hyperlipidemia): Code(s): E78.5 - Hyperlipidemia, unspecified Status: Acute Assessment and Plan: Continue rosuvastatin as ordered. (10) Vitamin D deficiency: Code(s): E55.9 - Vitamin D deficiency, unspecified Status: Acute Assessment and Plan: Continue vitamin D as ordered. (11) History of ileostomy: Code(s): Z98.890 - Other specified postprocedural states Status: Chronic Assessment and Plan: he can manage on his own (12) Obstructive sleep apnea treated with BiPAP: Code(s): G47.33 - Obstructive sleep apnea (adult) (pediatric) Status: Chronic Assessment and Plan: Continue with home Bipap. (13) Hypertension: Qualifiers: Hypertension type: essential hypertension Qualified Code(s): I10 - Essential (primary) hypertension Code(s): I10 - Essential (primary) hypertension Status: Chronic Assessment and Plan: Continue with carvedilol as ordred. (14) Afib: Qualifiers: Atrial fibrillation type: paroxysmal Qualified Code(s): I48.0 - Paroxysmal atrial fibrillation Code(s): I48.91 - Unspecified atrial fibrillation Status: Chronic Assessment and Plan: Continue diltiazem as ordred. (15) Anxiety: Code(s): F41.9 - Anxiety disorder, unspecified Status: Chronic Assessment and Plan: Continue alprazolam and amitriptyline
[2019-11-20] MEDS: AMITRIPTYLINE HCL 25 MG TABLET PO (20:28)
[2019-11-20 20:48] LABS: Glucose Point of Care 154 (65-105)
[2019-11-20 22:05] LABS: Vancomycin Trough 14.9 ug/mL (10.0-20.0)
[2019-11-21 06:00] VITALS: BP 144/64; PULSE 84; RESP 17; TEMP 36.1; O2SAT 97
--- NOTE | 2019-11-21 06:22 | PC.NURSE ---
Pt has been NPO since 0000 on 11/21 in case of surgery.
[2019-11-21] MEDS: CHOLECALCIFEROL 400 UNITS TABLET (VIT D) PO (09:09)
[2019-11-21] MEDS: MONTELUKAST SODIUM 10 MG TABLET PO (09:09)
[2019-11-21] MEDS: VITAMIN B COMPLEX CAPSULE 1 CAP PO (09:09)
[2019-11-21] MEDS: ROSUVASTATIN 10 MG TABLET 40 MG PO (09:09)
[2019-11-21 09:10] VITALS: BP 125/66; PULSE 86; O2SAT 98
[2019-11-21] MEDS: carvediloL 25 MG TABLET PO ×2 (09:10→21:23)
[2019-11-21] MEDS: ASPIRIN 81 MG ENTERIC TABLET PO (09:10)
[2019-11-21] MEDS: INSULIN GLARGINE (*BKC) 100 UNITS/ML 25 UNITS SUB-Q (09:10)
[2019-11-21] MEDS: FAMOTIDINE 20 MG/2 ML VIAL IV PUSH ×2 (09:11→21:23)
[2019-11-21] MEDS: SOD HYPOCHLORITE 1/4 STRENGTH 473 ML 1 APPLIC TOPICAL (09:12)
[2019-11-21] MEDS: MORPHINE SULFATE 4 MG/ML INJ IV PUSH ×2 (09:13→16:47)
[2019-11-21 09:15] LABS: Hematocrit 33.7 % (42.0-52.0); Mean Corpuscular HGB Conc 32.6 g/dl (32-36); Mean Corpuscular Hemoglobin 29.5 pg (26-34); Mean Corpuscular Volume 90.3 fl (80-100); Mean Platelet Volume 10.4 fl (7.4-10.4); Platelet Count Result 334 k/mm3 (150-375); Red Blood Count 3.73 M/mm3 (4.6-6.20); Red Cell Distribution Width 12.4 % (11.5-14.5); White Blood Count 14.9 K/mm3 (4.5-10.0)
[2019-11-21 09:27] LABS: Blood Urea Nitrogen 11 mg/dL (9-20); Calcium 9.6 mg/dL (8.4-10.2); Carbon Dioxide 25 mmol/L (22-30); Chloride 96 mmol/L (98-107); Estimated CRCL calculation 88 ml/min; Estimated Glomerular Filt Rate > 60; Glucose 165 mg/dL (75-110); Magnesium 1.9 mg/dL (1.6-2.3); Potassium 3.7 mmol/L (3.4-5.0); Sodium 135 mmol/L (137-145)
[2019-11-21 09:48] LABS: Glucose Point of Care 165 (65-105)
--- NOTE | 2019-11-21 13:57 | PM.IMPN ---
Progress Note: A&P Assessment and Plan (1) Cellulitis in diabetic foot: Code(s): E11.628 - Type 2 diabetes mellitus with other skin complications; L03.119 - Cellulitis of unspecified part of limb Status: Chronic Assessment and Plan: 11/21/19 13:57 Patient is 64-year-old male with history of uncontrolled diabetes and peripheral vascular disease patient with chronic diabetic foot ulcer and status post amputation of the toes and debridement of the wound had been seen by at the wound clinic and was referred back to the emergency department is wound is getting progressively worse, patient was seen by orthopedic surgeon and evaluate the patient, wanted to continue IV antibiotics for now continue to monitor and patient may need further amputation of his right foot, patient is wound treated with vancomycin will add Unasyn to provide broad coverage as wound culture is growing some gram negative organism, patient be seen by orthopedic surgeon again and further recommendation to follow (2) S/P debridement: Code(s): Z98.890 - Other specified postprocedural states Status: Acute Assessment and Plan: Treat with vancomycin as ordred. Will add True, Dr. Boyd to follow.wound vac off (3) Peripheral vascular disease: Code(s): I73.9 - Peripheral vascular disease, unspecified Status: Acute Assessment and Plan: Monitor pulses. has been seen by Dr. BEARDEN (4) CHF (congestive heart failure): Code(s): I50.9 - Heart failure, unspecified Status: Chronic Assessment and Plan: Continue furosemide as ordred. correg (5) Diabetes 1.5, managed as type 2: Code(s): E13.9 - Other specified diabetes mellitus without complications Status: Chronic Assessment and Plan: Monitor blood glucose ac/hs. Continue with Novolog sliding scale. Continue with Januvia and Lantus. (6) COPD (chronic obstructive pulmonary disease): Code(s): J44.9 - Chronic obstructive pulmonary disease, unspecified Status: Chronic Assessment and Plan: Continue with ventolin as ordered.singular (7) Diabetic polyneuropathy associated with type 2 diabetes mellitus: Code(s): E11.42 - Type 2 diabetes mellitus with diabetic polyneuropathy Status: Acute Assessment and Plan: keep sugars under control (8) Gastroesophageal reflux disease without esophagitis: Code(s): K21.9 - Gastro-esophageal reflux disease without esophagitis Status: Acute Assessment and Plan: Zofran PRN for nausea. (9) HLD (hyperlipidemia): Code(s): E78.5 - Hyperlipidemia, unspecified Status: Acute Assessment and Plan: Continue rosuvastatin as ordered. (10) Vitamin D deficiency: Code(s): E55.9 - Vitamin D deficiency, unspecified Status: Acute Assessment and Plan: Continue vitamin D as ordered. (11) History of ileostomy: Code(s): Z98.890 - Other specified postprocedural states Status: Chronic Assessment and Plan: he can manage on his own (12) Obstructive sleep apnea treated with BiPAP: Code(s): G47.33 - Obstructive sleep apnea (adult) (pediatric) Status: Chronic Assessment and Plan: Continue with home Bipap. (13) Hypertension: Qualifiers: Hypertension type: essential hypertension Qualified Code(s): I10 - Essential (primary) hypertension Code(s): I10 - Essential (primary) hypertension Status: Chronic Assessment and Plan: Continue with carvedilol as ordred. (14) Afib: Qualifiers: Atrial fibrillation type: paroxysmal Qualified Code(s): I48.0 - Paroxysmal atrial fibrillation Code(s): I48.91 - Unspecified atrial fibrillation Status: Chronic Assessment and Plan: Continue diltiazem as ordred. (15) Anxiety: Code(s): F41.9 - Anxiety disorder, unspecified Status: Chronic Assessment and Plan: Continue alprazolam
[2019-11-21 14:00] VITALS: BP 100/54; PULSE 83; RESP 18; TEMP 36.2; O2SAT 100
[2019-11-21 14:03] LABS: Glucose Point of Care 162 (65-105)
--- NOTE | 2019-11-21 14:38 | PCOTNOTE ---
OT evaluation deferred while awaiting Orthopedic consult. Will attempt OT evaluation after patient is seen by orthopedic surgeon and ok given.
--- NOTE | 2019-11-21 15:11 | PM.CNCAR ---
Assessment and Plan Assessment and plan (1) S/P debridement: Code(s): Z98.890 - Other specified postprocedural states Status: Acute (2) Cellulitis in diabetic foot: Code(s): E11.628 - Type 2 diabetes mellitus with other skin complications; L03.119 - Cellulitis of unspecified part of limb Status: Chronic (3) Cardiomyopathy: Code(s): I42.9 - Cardiomyopathy, unspecified Status: Chronic Assessment and Plan: No signs of congestive heart failure at this time, okay to proceed with surgery, will be on standby for any complications from cardiac standpoint (4) CHF (congestive heart failure): Code(s): I50.9 - Heart failure, unspecified Status: Chronic Assessment and Plan: Seems to be well compensated now (5) Diabetes 1.5, managed as type 2: Code(s): E13.9 - Other specified diabetes mellitus without complications Status: Chronic (6) Amputation toe: Qualifiers: Laterality: right Qualified Code(s): S98.131A - Complete traumatic amputation of one right lesser toe, initial encounter Code(s): S98.139A - Complete traumatic amputation of one unspecified lesser toe, initial encounter Status: Acute (7) Peripheral vascular disease: Code(s): I73.9 - Peripheral vascular disease, unspecified Status: Acute Assessment and Plan: He has severe peripheral vascular disease with significant disease below the knee, duplex was reviewed, he should have good flow into the popliteal, but for going for [id number] amputation he should have enough blood flow for the scar to heal. In the event that he does not do the amputation he would benefit from revascularization of the atrophy tibial and posterior tibial arteries to improve long-term viability of the foot and the leg. I reviewed his arterial duplex, he seems to have good femoral flow, but has decreased flow below the knee. It seems that the scheduled surgery already planned for tomorrow with amputation, with that in mind is no need for any further vascular intervention at this time, in the event that he does not go for surgery and does not do the amputation then we can arrange for intervention on anterior tibial and posterior tibial arteries History of Present Illness History of Present Illness Consult date/time: 11/21/19 15:11 64-year-old gentleman with history of known diabetes mellitus, history of coronary artery disease history of ischemic cardiomyopathy and severe peripheral vascular disease, was not was the hospital because of nonhealing ulcer of the amputated toe of the right foot, I would ASA for fossa for possible revascularization to improve his circulation however the patient seems to be already deciding on going for amputation [id number], because he does not want to go to multiple surgeries, as he had multiple surgeries for the left-sided eventually he ended went below the knee amputation, currently [id number] amputation for the right leg is contemplated, and possibly planned for tomorrow. I reviewed his arterial duplex which revealed that he has good flow to the popliteal artery good flow to the femoral artery that has a distal 3 vessel disease below the knee, he would benefit from intervention if it is planned to save the amputation, however since the patient already planned there is no sense of do any further intervention at this time. He see vascular surgeon Dr. Mohr [facility] and he sees operating room specialist at [facility]. No recent chest pain no orthopnea no PNDs no significant shortness breath at rest Reason For Visit: Cellulitis diabetic foot Review of Systems Cardiovascular: Cardiovascular: Reports as per HPI Respiratory: Respiratory: Reports chest congestion and Reports dyspnea on exertion PMFSH Past Medical History Medical History Alcohol abuse Amputation toe Anxiety Cardiomyopathy CHF (
[2019-11-21] MEDS: AMPICILLIN SULB 3 GM/NS 100 ML 3 GM/100 ML VIAL IVPB ×2 (16:44→21:26)
[2019-11-21] MEDS: LACTATED RINGERS 1,000 ML 75 ML IV CONT (16:58)
[2019-11-21 17:34] LABS: Glucose Point of Care 134 (65-105)
--- NOTE | 2019-11-21 18:26 | PM.PNORT ---
Progress Note: A&P Assessment and Plan (1) Peripheral vascular disease: Code(s): I73.9 - Peripheral vascular disease, unspecified Status: Acute Assessment and Plan: examination shows worsening of the wound and gangrene right foot. Arterial ultrasound results reviewed showing severe arterial dysfunction mid lower leg distal. Lengthy discussion with the patient and his significant other regarding treatment options. Due to the amount of necrosis along the medial border of the foot wound healing for transmetatarsal amputation is doubtful and most likely would progress to failure. Patient's questions answered. He failed transmetatarsal amputation on the left side, hallux amputation and 1st ray amputation on the right side. Unchanged severe peripheral arterial disease. Patient desires below-knee amputation. Discussed nonoperative and operative treatment options with the patient. Risks and benefits of each as well as alternatives were reviewed. All of the patient's questions were answered. The risks of surgery reviewed including but not limited to: Neurovascular damage, wound complication, infection, blood clot, pulmonary embolus, stroke, myocardial infarction, and anesthetic risks up to and including . Continued pain and possible dysfunction were explained. Specific risks of the procedure including later recurrence of deformity. No guarantees were offered. If hardware used, discussed risk of failure/ breakage and possible need for removal. If complications occur, the patient understands the need for further treatment, possible further surgery. Patient verbalizes understanding and wishes to proceed. PLAN: Right below-knee amputation with tibia -fibular arthrodesis (2) Gangrene of toe of right foot: Code(s): I96 - Gangrene, not elsewhere classified Status: Acute (3) Diabetic foot ulcer associated with diabetes mellitus due to underlying condition: Qualifiers: Diabetic foot ulcer location: toe Laterality: right Non-pressure ulcer stage: with bone involvement without evidence of necrosis Qualified Code(s): E08.621 - Diabetes mellitus due to underlying condition with foot ulcer; L97.516 - Non-pressure chronic ulcer of other part of right foot with bone involvement without evidence of necrosis Code(s): E08.621 - Diabetes mellitus due to underlying condition with foot ulcer; L97.509 - Non-pressure chronic ulcer of other part of unspecified foot with unspecified severity Status: Acute (4) Diabetic polyneuropathy associated with type 2 diabetes mellitus: Code(s): E11.42 - Type 2 diabetes mellitus with diabetic polyneuropathy Status: Acute (5) Diabetes 1.5, managed as type 2: Code(s): E13.9 - Other specified diabetes mellitus without complications Status: Chronic (6) Cellulitis in diabetic foot: Code(s): E11.628 - Type 2 diabetes mellitus with other skin complications; L03.119 - Cellulitis of unspecified part of limb Status: Chronic Subjective Subjective Date/Time Seen: 11/21/19 14:26 Patient states right foot feels a little bit better. No new complaints. Review of Systems Constitutional: Constitutional: Denies chills, Denies fatigue and Denies weakness Cardiovascular: Cardiovascular: Denies chest pain Respiratory: Respiratory: Reports no additional respiratory complaints and Denies dyspnea Gastrointestinal: Gastrointestinal: Denies abdominal pain, Denies bloating, Denies diarrhea, Denies nausea and Denies vomiting Genitourinary: Genitourinary: Reports no additional male genitourinary complaints Musculoskeletal: Musculoskeletal: Reports numbness (baseline neuropathy ) and Reports tingling (baseline neuropathy ) Comments: No pain right foot Integumentary/Breasts: Skin/Breast: Reports non-healing lesions ( Right foot) Neurologic: Reports Sensory deficit (Neuro) ( right foot, left hand) and Reports weakness ( left hand) Psychiatric: Ps
[2019-11-21 20:13] VITALS: BP 105/62; PULSE 95; RESP 18; TEMP 36.3; O2SAT 99
[2019-11-21 21:23] VITALS: PULSE 82
[2019-11-21] MEDS: AMITRIPTYLINE HCL 25 MG TABLET PO (21:23)
[2019-11-21 22:10] LABS: Glucose Point of Care 183 (65-105)
[2019-11-21 23:44] VITALS: PULSE 74; O2SAT 96
[2019-11-22] VITALS (14 sets, daily range): BP systolic 117–150; BP diastolic 58–82; PULSE 76–101; RESP 10–20; TEMP 36.1–36.7; O2SAT 92–100
[2019-11-22] MEDS: AMPICILLIN SULB 3 GM/NS 100 ML 3 GM/100 ML VIAL IVPB ×4 (04:47→21:46)
[2019-11-22] MEDS: MORPHINE SULFATE 4 MG/ML INJ IV PUSH ×4 (04:53→23:44)
[2019-11-22 05:38] LABS: Glucose Point of Care 202 (65-105)
[2019-11-22 05:50] LABS: Hematocrit 30.8 % (42.0-52.0); Hemoglobin 10.1 g/dL (14.0-18.0); Mean Corpuscular HGB Conc 32.8 g/dl (32-36); Mean Corpuscular Hemoglobin 29.5 pg (26-34); Mean Corpuscular Volume 90.1 fl (80-100); Mean Platelet Volume 10.2 fl (7.4-10.4); Platelet Count Result 311 k/mm3 (150-375); Red Blood Count 3.42 M/mm3 (4.6-6.20); Red Cell Distribution Width 12.6 % (11.5-14.5); White Blood Count 11.7 K/mm3 (4.5-10.0)
[2019-11-22 05:59] LABS: Blood Urea Nitrogen 10 mg/dL (9-20); Calcium 9.2 mg/dL (8.4-10.2); Carbon Dioxide 28 mmol/L (22-30); Chloride 98 mmol/L (98-107); Estimated CRCL calculation 88 ml/min; Estimated Glomerular Filt Rate > 60; Glucose 224 mg/dL (75-110); Potassium 3.4 mmol/L (3.4-5.0); Sodium 135 mmol/L (137-145)
--- NOTE | 2019-11-22 06:57 | WPDHPUPDATE1 ---
History and Physical Update Update Date/Time: 11/22/19 06:57 History and Physical has been reviewed, including an updated exam of the patient. There are NO changes in the patient's condition. Risks, benefits, and alternatives have been discussed and questions answered. Patient agrees to proceed with procedure.
--- NOTE | 2019-11-22 08:20 | P.PNAN_ITS ---
Anes - Eval Final PreProcedure Day of Procedure 11/22/19 08:20 Patient weight: obese Heart: regular rate and rhythm Lungs: clear to auscultation Airway: Mallampati scale class II Neurological: alert and oriented Last oral intake: >/= 8 hours ASA classification: IV Emergent: no Anesthetic plan: proceed Anesthesia type and monitoring: general ETT and standard monitoring Informed Consent: The patient's anesthetic plan and its attendant risks and mary efits were discussed with the patient/family/POA. Questions were solicited and answers provided to the satisfaction of the patient/family/POA.
[2019-11-22] MEDS: LACTATED RINGERS 1,000 ML 30 ML IV CONT ×2 (09:00→11:45)
[2019-11-22] MEDS: BUPIVACAINE/EPINEPHRINE 0.5% 10 ML VIAL 20 ML INFILTRATE (10:09)
--- NOTE | 2019-11-22 10:28 | SUR.OPER ---
SPECIMAN GIVEN TO [facility] IN PATHOLOGY BY DOV FALLON
[2019-11-22] MEDS: KETOROLAC 30 MG/ML VIAL (*BKC) IV PUSH (11:38)
--- NOTE | 2019-11-22 12:00 | PM.PROC ---
Procedure Note - Detailed Date of procedure: 11/22/19 Pre-op diagnosis: Cellulitis diabetic foot Gangrene right foot Post-op diagnosis: same Procedure performed: Right below-knee amputation with tibia fibular arthrodesis Description of procedure: Patient is a 64-year-old gentleman with severe peripheral arterial disease, status post left below-knee amputation for left foot gangrene. Developed gangrene of the right hallux and 1st ray. Underwent 1st ray amputation which failed to heal and now has gangrene of the foot. Repeat blood flow studies show absence of arterial blood flow from the distal leg. Patient desires amputation of the right leg. What was done: Patient identified in the preoperative holding. Informed consent given. Operative extremity marked. Patient received intravenous antibiotics. Patient brought to the operating room where underwent general anesthetic by anesthesia team. Positioned supine on operating room table. Time-out performed confirming the patient, site of the surgery and the plan. Leg then prepped and draped usual sterile surgical fashion using Betadine prep solution. Calf and leg exsanguinated and a thigh tourniquet inflated to 250 mmHg. Anatomic landmarks mapped out on the skin to allow for a posterior flap and approximately 12 cm of tibia below the tibial tubercle. Skin incision made with a 10 blade knife. Hemostasis controlled electrocautery. Cautery dissection carried down circumferentially through the fascia. Dissection then carried around the proximal fibula, retractors placed in sagittal saw used to transect the fibula. Elevator used to dissect soft tissue off of the tibia. Tibia once again measured and the tibia osteotomy performed with a sagittal saw with retractors posterior to protect the soft tissue. Saphenous vessels and peroneal vessels were identified and ligated with 2 0 silk suture. The peroneal nerve and saphenous nerve identified and anesthetized with 0.5% Marcaine with epinephrine and ligated. Tibia was then brought forward and an amputation knife was placed posterior to the tibia and the distal fibula and the soft tissue was transected away from the bone. The cut was completed through the Achilles tendon. The distal leg ankle and foot were then passed off as specimen. Tibial artery identified and ligated with 2 0 silk suture. Tibial nerve identified and anesthetized with 0.5% Marcaine with epinephrine and ligated. Any other bleeding points coagulated with cautery. The tourniquet was then released. Any further bleeding was controlled with cautery or 2 0 silk suture ligation. After thorough hemostasis the wound was thoroughly irrigated with antibiotic solution. The anterior cortex of the tibia was shaped with the saw to reduce pressure. Portion of the fibula was then transected and the distal portion was rotated into the tibia fibular interspace. The cortex of the tibia and fibula were denuded with a rongeur. Fixation was then achieved with the 2. FiberWire tight rope placed transversely from the fibula through the fibular interposition piece and into the tibia. Good stability was noted. Thorough irrigation performed. Myodesis was then performed of the gastrocnemius over the distal tibia using #2 Ethibond suture placed through trans osseous holes in the distal tibia. Fascia then repaired with 0 Vicryl interrupted suture. Subcutaneous tissue repaired with 2 Vicryl 3 0 Monocryl interrupted suture and skin repaired with clarita. Sterile dressing followed by a immediate fitting weight-bearing cast using fiberglass cast material. Patient awoken from anesthesia, extubated and taken to recovery room in stable condition. All sponge needle and instrument counts correct at the end of the case. Implants: Arthrex 2. FiberWire tight rope Anesthesia: EN Surgeon: Jeffrey Louise MD Pipe Bender: 1st learning support assistant Estimated blood loss (mL): 100 Tourniquet time (min): 35 Drains: No Packing: No Pathology: none sent
[2019-11-22 12:12] LABS: Glucose Point of Care 206 (65-105)
--- NOTE | 2019-11-22 12:58 | SUR.PHASEI ---
1250 family back to room,.
[2019-11-22] MEDS: FAMOTIDINE 20 MG/2 ML VIAL IV PUSH ×2 (13:22→21:45)
[2019-11-22] MEDS: POTASSIUM CHLORIDE 20 MEQ PACKET (FOR LIQUID) 40 MEQ PO (13:22)
[2019-11-22] MEDS: ASPIRIN 81 MG ENTERIC TABLET PO (13:22)
[2019-11-22] MEDS: carvediloL 25 MG TABLET PO ×2 (13:22→21:45)
[2019-11-22] MEDS: MONTELUKAST SODIUM 10 MG TABLET PO (13:23)
[2019-11-22] MEDS: CHOLECALCIFEROL 400 UNITS TABLET (VIT D) PO (13:23)
[2019-11-22] MEDS: ROSUVASTATIN 10 MG TABLET 40 MG PO (13:23)
[2019-11-22] MEDS: VITAMIN B COMPLEX CAPSULE 1 CAP PO (13:24)
[2019-11-22] MEDS: INSULIN ASPART (*BKC) 100 UNITS/ML SUB-Q ×2 (13:34→16:54)
[2019-11-22 13:46] LABS: Glucose Point of Care 205 (65-105)
--- NOTE | 2019-11-22 14:55 | PM.IMPN ---
Progress Note: A&P Assessment and Plan (1) Cellulitis in diabetic foot: Code(s): E11.628 - Type 2 diabetes mellitus with other skin complications; L03.119 - Cellulitis of unspecified part of limb Status: Chronic Assessment and Plan: 11/22/19 14:55 Patient is 64-year-old male with history of uncontrolled diabetes and peripheral vascular disease patient with chronic diabetic foot ulcer and status post amputation of the toes and debridement of the wound had been seen by at the wound clinic and was referred back to the emergency department is wound is getting progressively worse, patient was seen by orthopedic surgeon and evaluate the patient, wanted to continue IV antibiotics for now continue to monitor and patient may need further amputation of his right foot, patient is wound treated with vancomycin will add Unasyn to provide broad coverage as wound culture is growing some gram negative organism as well as staph, patient was taken to the OR by orthopedic surgeon today and had BKA of right lower extremity, patient is feeling better the pain is also improved denies any fever or chills (2) S/P debridement: Code(s): Z98.890 - Other specified postprocedural states Status: Acute Assessment and Plan: Treat with vancomycin as ordred. Will add Unasyn, Dr. Boyd to follow.wound vac off, patient wound is growing Staph aureus will consult Dr. hernandez for his recommendation (3) Peripheral vascular disease: Code(s): I73.9 - Peripheral vascular disease, unspecified Status: Acute Assessment and Plan: Monitor pulses. has been seen by Dr. BEARDEN (4) CHF (congestive heart failure): Code(s): I50.9 - Heart failure, unspecified Status: Chronic Assessment and Plan: Continue furosemide as ordred. correg (5) Diabetes 1.5, managed as type 2: Code(s): E13.9 - Other specified diabetes mellitus without complications Status: Chronic Assessment and Plan: Monitor blood glucose ac/hs. Continue with Novolog sliding scale. Continue with Januvia and Lantus. (6) COPD (chronic obstructive pulmonary disease): Code(s): J44.9 - Chronic obstructive pulmonary disease, unspecified Status: Chronic Assessment and Plan: Continue with ventolin as ordered.singular (7) Diabetic polyneuropathy associated with type 2 diabetes mellitus: Code(s): E11.42 - Type 2 diabetes mellitus with diabetic polyneuropathy Status: Acute Assessment and Plan: keep sugars under control (8) Gastroesophageal reflux disease without esophagitis: Code(s): K21.9 - Gastro-esophageal reflux disease without esophagitis Status: Acute Assessment and Plan: Zofran PRN for nausea. (9) HLD (hyperlipidemia): Code(s): E78.5 - Hyperlipidemia, unspecified Status: Acute Assessment and Plan: Continue rosuvastatin as ordered. (10) Vitamin D deficiency: Code(s): E55.9 - Vitamin D deficiency, unspecified Status: Acute Assessment and Plan: Continue vitamin D as ordered. (11) History of ileostomy: Code(s): Z98.890 - Other specified postprocedural states Status: Chronic Assessment and Plan: he can manage on his own (12) Obstructive sleep apnea treated with BiPAP: Code(s): G47.33 - Obstructive sleep apnea (adult) (pediatric) Status: Chronic Assessment and Plan: Continue with home Bipap. (13) Hypertension: Qualifiers: Hypertension type: essential hypertension Qualified Code(s): I10 - Essential (primary) hypertension Code(s): I10 - Essential (primary) hypertension Status: Chronic Assessment and Plan: Continue with carvedilol as ordred. (14) Afib: Qualifiers: Atrial fibrillation type: paroxysmal Qualified Code(s): I48.0 - Paroxysmal atrial fibrillation Code(s): I48.91 - Unspecified atrial fibrillation Status: Chronic A
--- NOTE | 2019-11-22 15:16 | PCOTNOTE ---
Attempted OT evaluation, but unable to complete at this time as nurse recommended completing tomorrow secondary to patient just coming back from surgery. Will attempt again tomorrow.
--- NOTE | 2019-11-22 15:45 | PM.PNCARD ---
Progress Note: A&P Assessment and Plan (1) S/P debridement: Code(s): Z98.890 - Other specified postprocedural states Status: Acute (2) Cellulitis in diabetic foot: Code(s): E11.628 - Type 2 diabetes mellitus with other skin complications; L03.119 - Cellulitis of unspecified part of limb Status: Chronic (3) Cardiomyopathy: Code(s): I42.9 - Cardiomyopathy, unspecified Status: Chronic Assessment and Plan: No signs of congestive heart failure at this time, okay to proceed with surgery, will be on standby for any complications from cardiac standpoint (4) CHF (congestive heart failure): Code(s): I50.9 - Heart failure, unspecified Status: Chronic Assessment and Plan: Seems to be well compensated now (5) Diabetes 1.5, managed as type 2: Code(s): E13.9 - Other specified diabetes mellitus without complications Status: Chronic (6) Amputation toe: Qualifiers: Laterality: right Qualified Code(s): S98.131A - Complete traumatic amputation of one right lesser toe, initial encounter Code(s): S98.139A - Complete traumatic amputation of one unspecified lesser toe, initial encounter Status: Acute (7) Peripheral vascular disease: Code(s): I73.9 - Peripheral vascular disease, unspecified Status: Acute Assessment and Plan: He underwent amputation today, [id number] he seems to be doing fairly well with that and he is happy with this Subjective Date/time seen: 11/22/19 15:45 He had his amputation surgery today, he feels well now, no shortness breath no chest pain Exam Narrative: Exam Narrative: Awake alert oriented x3 not in acute distress Neck is supple no obvious JVD, no carotid bruit Chest: Good air entry bilaterally, lungs are clear to auscultation and percussion bilaterally Cardiovascular: Regular rate and rhythm, 2/6 systolic murmur noted left sternal border Abdomen: Soft nontender bowel sounds positive Extremities: Amputated left, and right leg, Objective Data Vital Signs Vital Signs: Vital Signs - 24 hr 11/21/19 20:13 11/21/19 21:23 11/21/19 23:44 Temperature 36.3 C L Pulse Rate 95 82 74 Respiratory Rate 18 Blood Pressure 105/62 Pulse Oximetry 99 96 11/22/19 04:52 11/22/19 11:45 11/22/19 12:00 Temperature 36.6 C 36.6 C Pulse Rate 76 91 88 Respiratory Rate 16 10 L 20 Blood Pressure 121/58 L 117/63 135/68 Pulse Oximetry 100 94 99 11/22/19 12:15 11/22/19 12:30 11/22/19 12:45 Temperature Pulse Rate 88 86 82 Respiratory Rate 19 19 17 Blood Pressure 138/68 135/69 138/74 Pulse Oximetry 92 96 95 11/22/19 13:15 11/22/19 13:22 11/22/19 13:30 Temperature 36.7 C 36.3 C L Pulse Rate 78 76 84 Respiratory Rate 16 18 Blood Pressure 150/66 H 128/65 Pulse Oximetry 100 96 11/22/19 14:00 11/22/19 15:00 Temperature 36.2 C L 36.1 C L Pulse Rate 84 85 Respiratory Rate 16 18 Blood Pressure 143/68 H 147/69 H Pulse Oximetry 99 99 Intake/Output Intake/Output: Intake & Output 11/19/19 11/20/19 11/21/19 11/22/19 23:59 23:59 23:59 23:59 Intake Total 1999 4200 3740 1390 Output Total 1050 1150 1500 775 Balance 950 3050 2240 615 Meds/Results Medications: Active Medications Generic Name Dose Route Start Last Admin Trade Name Freq PRN Reason Stop Dose Admin Hydrocodone Bitart/Acetaminophen 1 tab 11/21/19 09:36 11/21/19 21:23 [place] 5-325 Mg PO 1 tab Q6H PRN Administration Pain Rated 4-6 Albuterol 1 puff 11/19/19 15:30 Proventil Hfa INHALATION QID PRN Shortness Of Breath Or Wheezing Alprazolam 0.25 mg 11/19/19 15:30 Xanax PO TID PRN anxiety Amitriptyline HCl 25 mg 11/19/19 21:00 11/21/19 21:23 Elavil PO 25 mg HS LEXUS Administration Aspirin 81 mg 11/20/19 09:00 11/22/19 13:22 Aspirin Ec PO 81 mg DAILY LEXUS Administration Carvedilol 25 mg 11/19/19 21:00 11/22/19 13:22 Coreg PO 25 mg Q12HR
[2019-11-22 16:41] LABS: Glucose Point of Care 275 (65-105)
[2019-11-22] MEDS: LACTATED RINGERS 1,000 ML 75 ML IV CONT (19:05)
[2019-11-22] MEDS: AMITRIPTYLINE HCL 25 MG TABLET PO (21:45)
[2019-11-22] MEDS: IBUPROFEN IV 400 MG in SODIUM CHLORIDE 0.9% IV 100 ML 200 MG IVPB (22:26)
[2019-11-22] MEDS: ALPRAZOLAM 0.25 MG TABLET PO (22:35)
[2019-11-22 23:52] LABS: Glucose Point of Care 236 (65-105)
[2019-11-23] VITALS (7 sets, daily range): BP systolic 108–170; BP diastolic 55–74; PULSE 72–98; RESP 16–18; TEMP 36.1–36.5; O2SAT 95–100
[2019-11-23] MEDS: AMPICILLIN SULB 3 GM/NS 100 ML 3 GM/100 ML VIAL IVPB ×4 (03:38→21:56)
[2019-11-23] MEDS: IBUPROFEN IV 400 MG in SODIUM CHLORIDE 0.9% IV 100 ML 200 MG IVPB ×2 (04:43→15:36)
[2019-11-23 06:08] LABS: Blood Urea Nitrogen 9 mg/dL (9-20); Carbon Dioxide 26 mmol/L (22-30); Chloride 100 mmol/L (98-107); Estimated CRCL calculation 100 ml/min; Estimated Glomerular Filt Rate > 60; Glucose 273 mg/dL (75-110); Potassium 3.7 mmol/L (3.4-5.0); Sodium 137 mmol/L (137-145)
[2019-11-23 06:49] LABS: Basophils Percent Auto 0.3 % (0.2-1.2); Eosinophils Percent Auto 0.2 % (0-4.4); Hematocrit 31.7 % (42.0-52.0); Hemoglobin 10.5 g/dL (14.0-18.0); Immature Granulocyte Absolute 0.13 K/mm3 (0.00-0.031); Immature Granulocyte Percent A 0.9 % (0-0.5); Lymphocytes Absolute Auto 0.66 K/mm3 (0.9-3.2); Lymphocytes Percent Auto 4.4 % (18.3-44.2); Mean Corpuscular HGB Conc 33.1 g/dl (32-36); Mean Corpuscular Hemoglobin 29.6 pg (26-34); Mean Corpuscular Volume 89.3 fl (80-100); Mean Platelet Volume 10.7 fl (7.4-10.4); Monocytes Absolute Auto 1.4 K/mm3 (0.1-0.6); Monocytes Percent Auto 9.3 % (2.6-8.5); Neutrophils Absolute Auto 12.7 K/mm3 (1.3-6.7); Neutrophils Percent Auto 84.9 % (45.5-73.1); Platelet Count Result 356 k/mm3 (150-375); Red Blood Count 3.55 M/mm3 (4.6-6.20); Red Cell Distribution Width 12.1 % (11.5-14.5)
--- NOTE | 2019-11-23 07:49 | PM.PNORT ---
Progress Note: A&P Assessment and Plan (1) Encounter for orthopedic follow-up care: Code(s): Z47.89 - Encounter for other orthopedic aftercare Status: Acute Assessment and Plan: postoperative day 1 right BKA. Pain overnight after nerve block wore off. Better this morning with IV ibuprofen. Currently comfortable. Cast right lower extremity. Nonweightbearing. PT/OT. TRC eval. DVT prophylaxis. Recommend 48 hours of antibiotics. Subjective Subjective Date/Time Seen: 11/23/19 07:49 Complains of pain right leg overnight. Better this morning. No problems with cast. Exam Const: General: comfortable and no acute distress HENMT: Mouth: Yes moist mucous membranes Eyes: General: appearance normal, both eyes and all related structures Neck: Neck: supple and no JVD Resp: Effort & Inspection: normal respiratory effort Cardio: Rate: regular rate Rhythm: regular rhythm GI: GI Palp: Yes Soft to palpation Other: Well-healed mid abdominal scar. Ileostomy Right Middle Quadrant Skin: General skin exam: erythema Wounds: wounds noted Other: See extremity exam Neuro: Cognition (Neuro): normal cognition Speech: normal speech Sensory Exam: No normal sensation Extrem: Right lower extremity: hip/thigh, knee, lower leg and foot Left lower extremity: hip/thigh, knee and lower leg (BKA ) Other: Right BKA. Cast in place. Well fitted. No skin irritation at the proximal portion of cast. Left BKA. Incision well-healed. No signs of infection. Psych: Mental Status: mental status grossly normal Objective Data Vital Signs Vital Signs: Vital Signs - 24 hr 11/22/19 11:45 11/22/19 12:00 11/22/19 12:15 Temperature 97.8 F Pulse Rate 91 88 88 Respiratory Rate 10 L 20 19 Blood Pressure 117/63 135/68 138/68 Pulse Oximetry 94 99 92 11/22/19 12:30 11/22/19 12:45 11/22/19 13:15 Temperature 98.1 F Pulse Rate 86 82 78 Respiratory Rate 19 17 16 Blood Pressure 135/69 138/74 150/66 H Pulse Oximetry 96 95 100 11/22/19 13:22 11/22/19 13:30 11/22/19 14:00 Temperature 97.4 F L 97.2 F L Pulse Rate 76 84 84 Respiratory Rate 18 16 Blood Pressure 128/65 143/68 H Pulse Oximetry 96 99 11/22/19 15:00 11/22/19 20:29 11/22/19 21:45 Temperature 97.0 F L 97.8 F Pulse Rate 85 101 H 84 Respiratory Rate 18 16 Blood Pressure 147/69 H 122/82 Pulse Oximetry 99 97 11/22/19 22:39 11/23/19 00:31 11/23/19 04:57 Temperature 97.3 F L 97 F L Pulse Rate 77 98 88 Respiratory Rate 16 16 Blood Pressure 156/74 H 170/70 H Pulse Oximetry 96 98 100 Intake/Output Intake/Output: Intake & Output 11/20/19 11/21/19 11/22/19 11/23/19 23:59 23:59 23:59 23:59 Intake Total 4200 3740 3174 1204 Output Total 1150 1500 1375 1600 Balance 3050 2240 1799 -396 Meds/Results Medications: Active Medications Generic Name Dose Route Start Last Admin Trade Name Freq PRN Reason Stop Dose Admin Hydrocodone Bitart/Acetaminophen 1 tab 11/21/19 09:36 11/21/19 21:23 [place] 5-325 Mg PO 1 tab Q6H PRN Administration Pain Rated 4-6 Albuterol 1 puff 11/19/19 15:30 Proventil Hfa INHALATION QID PRN Shortness Of Breath Or Wheezing Alprazolam 0.25 mg 11/19/19 15:30 11/22/19 22:35 Xanax PO 0.25 mg TID PRN Administration anxiety Amitriptyline HCl 25 mg 11/19/19 21:00 11/22/19 21:45 Elavil PO 25 mg HS LEXUS Administration Aspirin 81 mg 11/20/19 09:00 11/22/19 13:22 Aspirin Ec PO 81 mg DAILY LEXUS Administration Carvedilol 25 mg 11/19/19 21:00 11/22/19 21:45 Coreg PO 25 mg Q12HR LEXUS Administration Diltiazem HCl 300 mg 11/20/19 09:00 11/22/19 13:23 Cardizem Cd PO 300 mg DAILY LEXUS Administration Famotidine 20 mg 11/19/19 21:00 11/22/19 21:45 Pepcid Iv IV PUSH 20 mg Q12HR LEXUS Administration Fluticasone Propionate 1 puff 11/19/19 20:00 11/21/19 19:15 Flovent Diskus INHALATION 1 puff DAILY@1999 [facility] Administrati
[2019-11-23 08:05] LABS: Glucose Point of Care 222 (65-105)
[2019-11-23] MEDS: MORPHINE SULFATE 4 MG/ML INJ IV PUSH ×3 (08:12→21:56)
[2019-11-23] MEDS: MONTELUKAST SODIUM 10 MG TABLET PO (08:17)
[2019-11-23] MEDS: ROSUVASTATIN 10 MG TABLET 40 MG PO (08:17)
[2019-11-23] MEDS: ASPIRIN 81 MG ENTERIC TABLET PO (08:18)
[2019-11-23] MEDS: FAMOTIDINE 20 MG/2 ML VIAL IV PUSH ×2 (08:18→21:56)
[2019-11-23] MEDS: VITAMIN B COMPLEX CAPSULE 1 CAP PO (08:18)
[2019-11-23] MEDS: carvediloL 25 MG TABLET PO ×2 (08:18→21:55)
[2019-11-23] MEDS: CHOLECALCIFEROL 400 UNITS TABLET (VIT D) PO (08:18)
[2019-11-23] MEDS: RIVAROXABAN 10 MG TABLET PO (08:18)
[2019-11-23] MEDS: INSULIN GLARGINE (*BKC) 100 UNITS/ML 25 UNITS SUB-Q (08:25)
[2019-11-23] MEDS: INSULIN ASPART (*BKC) 100 UNITS/ML SUB-Q ×3 (08:26→17:20)
--- NOTE | 2019-11-23 12:06 | PCNFU ---
Nutrition Follow-Up Complete: Increased protein needs r/t increased demand for skin health as evidence by recent surgery and wounds present BG control, Jerrell acceptance Goal:Met goal. Pt current nutrition is DBCC. Nutrition recommendation: Agree Last recorded weight is 96.2 kg. Bowel Motility:+BM 11/22 Labs Reviewed:Glu 273 Meds Noted:Vit D, B complex, Novolog, Januvia,Crestor, Lantus. Additional Notes: Patient had Right BKA 11/22. Currently on a diabetic diet with Glucerna shakes BID. Intake has been good, 80-100% of meals. Patient had no diet questions or concerns at this time. TRErvin Bentley. Monitoring: Intake, weight, labs, wound healing every 7 days.
--- NOTE | 2019-11-23 12:26 | PM.IMPN ---
Progress Note: A&P Assessment and Plan (1) Cellulitis in diabetic foot: Code(s): E11.628 - Type 2 diabetes mellitus with other skin complications; L03.119 - Cellulitis of unspecified part of limb Status: Chronic Assessment and Plan: 11/23/19 12:26 Patient is 64-year-old male with history of uncontrolled diabetes and peripheral vascular disease patient with chronic diabetic foot ulcer and status post amputation of the toes and debridement of the wound had been seen by at the wound clinic and was referred back to the emergency department is wound is getting progressively worse, patient was seen by orthopedic surgeon and evaluate the patient, wanted to continue IV antibiotics for now continue to monitor and patient may need further amputation of his right foot, patient is wound treated with vancomycin will add Unasyn to provide broad coverage as wound culture is growing some gram negative organism as well as staph, patient was taken to the OR by orthopedic surgeon on 11/22 and had BKA of right lower extremity, POD #1, patient states the pain was worse last night after the anesthesia wore off now the is better this morning, is working with physical therapy plan is to transfer the patient to [facility] for rehab (2) S/P debridement: Code(s): Z98.890 - Other specified postprocedural states Status: Acute Assessment and Plan: Treat with vancomycin as ordred. Will add Sylviasymadelyn, Dr. Boyd to follow.wound vac off, patient wound is growing Staph aureus will consult Dr. hernandez for his recommendation (3) Peripheral vascular disease: Code(s): I73.9 - Peripheral vascular disease, unspecified Status: Acute Assessment and Plan: Monitor pulses. has been seen by Dr. BEARDEN (4) CHF (congestive heart failure): Code(s): I50.9 - Heart failure, unspecified Status: Chronic Assessment and Plan: Continue furosemide as ordred. correg (5) Diabetes 1.5, managed as type 2: Code(s): E13.9 - Other specified diabetes mellitus without complications Status: Chronic Assessment and Plan: Monitor blood glucose ac/hs. Continue with Novolog sliding scale. Continue with Januvia and Lantus. (6) COPD (chronic obstructive pulmonary disease): Code(s): J44.9 - Chronic obstructive pulmonary disease, unspecified Status: Chronic Assessment and Plan: Continue with ventolin as ordered.singular (7) Diabetic polyneuropathy associated with type 2 diabetes mellitus: Code(s): E11.42 - Type 2 diabetes mellitus with diabetic polyneuropathy Status: Acute Assessment and Plan: keep sugars under control (8) Gastroesophageal reflux disease without esophagitis: Code(s): K21.9 - Gastro-esophageal reflux disease without esophagitis Status: Acute Assessment and Plan: Zofran PRN for nausea. (9) HLD (hyperlipidemia): Code(s): E78.5 - Hyperlipidemia, unspecified Status: Acute Assessment and Plan: Continue rosuvastatin as ordered. (10) Vitamin D deficiency: Code(s): E55.9 - Vitamin D deficiency, unspecified Status: Acute Assessment and Plan: Continue vitamin D as ordered. (11) History of ileostomy: Code(s): Z98.890 - Other specified postprocedural states Status: Chronic Assessment and Plan: he can manage on his own (12) Obstructive sleep apnea treated with BiPAP: Code(s): G47.33 - Obstructive sleep apnea (adult) (pediatric) Status: Chronic Assessment and Plan: Continue with home Bipap. (13) Hypertension: Qualifiers: Hypertension type: essential hypertension Qualified Code(s): I10 - Essential (primary) hypertension Code(s): I10 - Essential (primary) hypertension Status: Chronic Assessment and Plan: Continue with carvedilol as ordred. (14) Afib: Qualifiers: Atrial fibrillation type: paroxysmal Qualified Code(s): I48.0 -
[2019-11-23 12:46] LABS: Glucose Point of Care 243 (65-105)
[2019-11-23 17:00] LABS: Glucose Point of Care 218 (65-105)
[2019-11-23] MEDS: LACTATED RINGERS 1,000 ML 75 ML IV CONT (17:17)
[2019-11-23] MEDS: AMITRIPTYLINE HCL 25 MG TABLET PO (21:56)
[2019-11-23 22:08] LABS: Vancomycin Trough 17.3 ug/mL (10.0-20.0)
[2019-11-23 22:31] LABS: Glucose Point of Care 176 (65-105)
[2019-11-24] MEDS: IBUPROFEN IV 400 MG in SODIUM CHLORIDE 0.9% IV 100 ML 200 MG IVPB ×3 (00:06→20:09)
[2019-11-24] MEDS: AMPICILLIN SULB 3 GM/NS 100 ML 3 GM/100 ML VIAL IVPB ×4 (04:59→22:45)
[2019-11-24 06:00] VITALS: BP 112/57; PULSE 74; RESP 16; TEMP 36.7; O2SAT 99
[2019-11-24 06:18] LABS: Hematocrit 29.4 % (42.0-52.0); Hemoglobin 9.5 g/dL (14.0-18.0); Mean Corpuscular HGB Conc 32.3 g/dl (32-36); Mean Corpuscular Hemoglobin 29.4 pg (26-34); Mean Platelet Volume 10.5 fl (7.4-10.4); Platelet Count Result 337 k/mm3 (150-375); Red Blood Count 3.23 M/mm3 (4.6-6.20); Red Cell Distribution Width 12.5 % (11.5-14.5); White Blood Count 10.3 K/mm3 (4.5-10.0)
[2019-11-24 06:34] LABS: Blood Urea Nitrogen 9 mg/dL (9-20); Calcium 9.1 mg/dL (8.4-10.2); Carbon Dioxide 27 mmol/L (22-30); Chloride 98 mmol/L (98-107); Estimated CRCL calculation 88 ml/min; Estimated Glomerular Filt Rate > 60; Glucose 208 mg/dL (75-110); Potassium 3.6 mmol/L (3.4-5.0); Sodium 135 mmol/L (137-145)
--- NOTE | 2019-11-24 08:44 | PM.PNORT ---
Progress Note: A&P Assessment and Plan (1) Encounter for orthopedic follow-up care: Onset Date: 11/22/19 Code(s): Z47.89 - Encounter for other orthopedic aftercare Status: Acute Assessment and Plan: Postoperative day 2 right below-knee amputation. Cast well fitted. Pain has improved overall. Patient up to chair yesterday. Awaiting evaluation/ acceptance by rehab. Continue with intravenous antibiotics. Subjective Subjective Date/Time Seen: 11/24/19 08:44 No new complaints. Patient up to chair yesterday. Denies fever, chills, abdominal pain. Exam Const: General: comfortable and no acute distress HENMT: Mouth: Yes moist mucous membranes Eyes: General: appearance normal, both eyes and all related structures Neck: Neck: supple and no JVD Resp: Effort & Inspection: normal respiratory effort Cardio: Rate: regular rate Rhythm: regular rhythm GI: GI Palp: Yes Soft to palpation Other: Well-healed mid abdominal scar. Ileostomy Right Middle Quadrant Skin: General skin exam: erythema Wounds: wounds noted Other: See extremity exam Neuro: Cognition (Neuro): normal cognition Speech: normal speech Sensory Exam: No normal sensation Extrem: Right lower extremity: hip/thigh, knee, lower leg and foot Left lower extremity: hip/thigh, knee and lower leg (BKA ) Other: Right BKA. Cast in place. Well fitted. No skin irritation at the proximal portion of cast. Left BKA. Incision well-healed. No signs of infection. Psych: Mental Status: mental status grossly normal Objective Data Vital Signs Vital Signs: Vital Signs - 24 hr 11/23/19 14:00 11/23/19 21:15 11/23/19 21:45 Temperature 97.5 F L 97.7 F Pulse Rate 87 75 74 Respiratory Rate 18 16 Blood Pressure 133/63 108/55 L Pulse Oximetry 98 100 95 11/23/19 21:55 11/24/19 06:00 Temperature 98.1 F Pulse Rate 72 74 Respiratory Rate 16 Blood Pressure 112/57 L Pulse Oximetry 99 Intake/Output Intake/Output: Intake & Output 11/21/19 11/22/19 11/23/19 11/24/19 23:59 23:59 23:59 23:59 Intake Total 3740 3174 3924 1790 Output Total 1500 1375 2900 1075 Balance 2240 1799 1024 715 Meds/Results Medications: Active Medications Generic Name Dose Route Start Last Admin Trade Name Freq PRN Reason Stop Dose Admin Hydrocodone Bitart/Acetaminophen 1 tab 11/21/19 09:36 11/23/19 12:24 [place] 5-325 Mg PO 1 tab Q6H PRN Administration Pain Rated 4-6 Albuterol 1 puff 11/19/19 15:30 Proventil Hfa INHALATION QID PRN Shortness Of Breath Or Wheezing Alprazolam 0.25 mg 11/19/19 15:30 11/22/19 22:35 Xanax PO 0.25 mg TID PRN Administration anxiety Amitriptyline HCl 25 mg 11/19/19 21:00 11/23/19 21:56 Elavil PO 25 mg HS LEXUS Administration Aspirin 81 mg 11/20/19 09:00 11/23/19 08:18 Aspirin Ec PO 81 mg DAILY LEXUS Administration Carvedilol 25 mg 11/19/19 21:00 11/23/19 21:55 Coreg PO 25 mg Q12HR LEXUS Administration Diltiazem HCl 300 mg 11/20/19 09:00 11/23/19 08:17 Cardizem Cd PO 300 mg DAILY LEXUS Administration Famotidine 20 mg 11/19/19 21:00 11/23/19 21:56 Pepcid Iv IV PUSH 20 mg Q12HR LEXUS Administration Fluticasone Propionate 2 spray 11/19/19 15:30 Flonase 0.05% Nasal [place] NASAL DAILY PRN Allergy Symptoms Fluticasone Propionate 1 puff 11/24/19 20:00 Flovent Diskus INHALATION DAILY@2000 LEXUS Vancomycin HCl 1,750 mg in 500 mls @ 250 mls/hr 11/19/19 22:00 11/24/19 01:45 Vancomycin 1,750 Mg/D5w 500 Ml IVPB Infused Q12H LEXUS Infusion Lactated Ringer's 1,000 mls @ 75 mls/hr 11/19/19 12:15 11/24/19 05:33 Lr - Lactated Ringers Iv IV CONT 75 mls/hr .[id number] LEXUS Infusion Ampicillin Sodium/Sulbactam Sodium 3 gm in 100 mls @ 200 mls/hr 11/21/19 16:00 11/24/19 05:29 Unasyn 3 Gm/Ns 100 Ml IVPB Infused Q6H LEXUS Infusion Ibuprofen 400 mg/ Sodium 104 mls @ 200 mls/hr 11/22/19 12:57
[2019-11-24 08:47] LABS: Glucose Point of Care 167 (65-105)
[2019-11-24] MEDS: ALPRAZOLAM 0.25 MG TABLET PO ×2 (09:12→19:18)
[2019-11-24 09:16] VITALS: PULSE 79
[2019-11-24] MEDS: FLUTICASONE PROPIONATE 0.05% NA SPR 16 GM BTL (*BKC) 2 SPRAY NASAL (09:16)
[2019-11-24] MEDS: ASPIRIN 81 MG ENTERIC TABLET PO (09:16)
[2019-11-24] MEDS: MONTELUKAST SODIUM 10 MG TABLET PO (09:16)
[2019-11-24] MEDS: carvediloL 25 MG TABLET PO ×2 (09:16→20:21)
[2019-11-24] MEDS: FAMOTIDINE 20 MG/2 ML VIAL IV PUSH ×2 (09:17→20:21)
[2019-11-24] MEDS: CHOLECALCIFEROL 400 UNITS TABLET (VIT D) PO (09:17)
[2019-11-24] MEDS: RIVAROXABAN 10 MG TABLET PO (09:17)
[2019-11-24] MEDS: VITAMIN B COMPLEX CAPSULE 1 CAP PO (09:17)
[2019-11-24] MEDS: ROSUVASTATIN 10 MG TABLET 40 MG PO (09:17)
[2019-11-24] MEDS: INSULIN GLARGINE (*BKC) 100 UNITS/ML 25 UNITS SUB-Q (09:22)
--- NOTE | 2019-11-24 10:12 | WPDANESPN ---
Anes - Prog Note Post-Op Date/Time: 11/24/19 10:12 Cardiovascular status: normal Respiratory status: normal Airway patency: baseline Mental status: baseline Post-Op hydration status: normal Vital Signs: Last Vital Signs Temp 36.7 C 11/24/19 06:00 Pulse 79 11/24/19 09:16 Resp 16 11/24/19 06:00 BP 112/57 L 11/24/19 06:00 Pulse Ox 99 11/24/19 06:00 I/O: Intake & Output 11/23/19 11/24/19 11/24/19 23:59 07:59 15:59 Intake Total 1890 1550 240 Output Total 200 1075 Balance 1690 475 240 Laboratory Tests 11/24/19 05:56 11/24/19 05:56 11/23/19 11/23/19 11/23/19 12:26 16:54 21:12 WBC RBC Hgb Hct MCV MCH MCHC RDW Plt Count MPV Sodium Potassium Chloride Carbon Dioxide BUN Creatinine Estim Creat Clear Calc Estimated GFR Glucose POC Capillary Glucose 243 H 218 H Calcium Vancomycin Trough 17.3 11/23/19 11/24/19 11/24/19 22:10 05:56 05:56 WBC 10.3 H RBC 3.23 L Hgb 9.5 L Hct 29.4 L MCV 91.0 MCH 29.4 MCHC 32.3 RDW 12.5 Plt Count 337 MPV 10.5 H Sodium 135 L Potassium 3.6 Chloride 98 Carbon Dioxide 27 BUN 9 Creatinine 0.80 Estim Creat Clear Calc 88 Estimated GFR > 60 Glucose 208 H POC Capillary Glucose 176 H Calcium 9.1 Vancomycin Trough 11/24/19 08:38 WBC RBC Hgb Hct MCV MCH MCHC RDW Plt Count MPV Sodium Potassium Chloride Carbon Dioxide BUN Creatinine Estim Creat Clear Calc Estimated GFR Glucose POC Capillary Glucose 167 H Calcium Vancomycin Trough Microbiology 11/19/19 14:40 Toe Right Second Wound Culture - Final Staphylococcus aureus Post-procedural complaints: none Patient Feedback: Patient satisfied with anesthetic care.
[2019-11-24 12:29] LABS: Glucose Point of Care 243 (65-105)
[2019-11-24] MEDS: INSULIN ASPART (*BKC) 100 UNITS/ML SUB-Q (12:30)
[2019-11-24 14:00] VITALS: BP 102/53; PULSE 85; RESP 18; TEMP 36.1; O2SAT 98
[2019-11-24] MEDS: MORPHINE SULFATE 4 MG/ML INJ IV PUSH ×3 (14:16→19:18)
--- NOTE | 2019-11-24 14:16 | PM.IMPN ---
Progress Note: A&P Assessment and Plan (1) Cellulitis in diabetic foot: Code(s): E11.628 - Type 2 diabetes mellitus with other skin complications; L03.119 - Cellulitis of unspecified part of limb Status: Chronic Assessment and Plan: 11/24/19 14:16 Patient is 64-year-old male with history of uncontrolled diabetes and peripheral vascular disease patient with chronic diabetic foot ulcer and status post amputation of the toes and debridement of the wound had been seen by at the wound clinic and was referred back to the emergency department is wound is getting progressively worse, patient was seen by orthopedic surgeon and evaluate the patient, wanted to continue IV antibiotics for now continue to monitor and patient may need further amputation of his right foot, patient is wound treated with vancomycin will add Unasyn to provide broad coverage as wound culture is growing some gram negative organism as well as staph, patient was taken to the OR by orthopedic surgeon on 11/22 and had BKA of right lower extremity, POD #2, patient states the pain was worse 11/22 after the anesthesia wore off now the pain is better this morning, is working with physical therapy plan is to transfer the patient to [facility] for rehab patient was seen by Dr. Louise recommended to continue antibiotics (2) S/P debridement: Code(s): Z98.890 - Other specified postprocedural states Status: Acute Assessment and Plan: Treat with vancomycin as ordred. Will add Unasyn, Dr. Boyd to follow.wound vac off, patient wound is growing Staph aureus will consult Dr. hernandez for his recommendation (3) Peripheral vascular disease: Code(s): I73.9 - Peripheral vascular disease, unspecified Status: Acute Assessment and Plan: Monitor pulses. has been seen by Dr. BEARDEN (4) CHF (congestive heart failure): Code(s): I50.9 - Heart failure, unspecified Status: Chronic Assessment and Plan: Continue furosemide as ordred. antoninag (5) Diabetes 1.5, managed as type 2: Code(s): E13.9 - Other specified diabetes mellitus without complications Status: Chronic Assessment and Plan: Monitor blood glucose ac/hs. Continue with Novolog sliding scale. Continue with Januvia and Lantus. (6) COPD (chronic obstructive pulmonary disease): Code(s): J44.9 - Chronic obstructive pulmonary disease, unspecified Status: Chronic Assessment and Plan: Continue with ventolin as ordered.singular (7) Diabetic polyneuropathy associated with type 2 diabetes mellitus: Code(s): E11.42 - Type 2 diabetes mellitus with diabetic polyneuropathy Status: Acute Assessment and Plan: keep sugars under control (8) Gastroesophageal reflux disease without esophagitis: Code(s): K21.9 - Gastro-esophageal reflux disease without esophagitis Status: Acute Assessment and Plan: Zofran PRN for nausea. (9) HLD (hyperlipidemia): Code(s): E78.5 - Hyperlipidemia, unspecified Status: Acute Assessment and Plan: Continue rosuvastatin as ordered. (10) Vitamin D deficiency: Code(s): E55.9 - Vitamin D deficiency, unspecified Status: Acute Assessment and Plan: Continue vitamin D as ordered. (11) History of ileostomy: Code(s): Z98.890 - Other specified postprocedural states Status: Chronic Assessment and Plan: he can manage on his own (12) Obstructive sleep apnea treated with BiPAP: Code(s): G47.33 - Obstructive sleep apnea (adult) (pediatric) Status: Chronic Assessment and Plan: Continue with home Bipap. (13) Hypertension: Qualifiers: Hypertension type: essential hypertension Qualified Code(s): I10 - Essential (primary) hypertension Code(s): I10 - Essential (primary) hypertension Status: Chronic Assessment and Plan: Continue with carvedilol as ordred. (14) Afib: Qualifiers:
--- NOTE | 2019-11-24 16:03 | PCOTNOTE ---
The patient treatment was not able to be completed on 11/24/2019 due to nursing report that patient was inappropriate for therapy due to being combative due to pain. Will plan to continue treatment per plan of care.
--- NOTE | 2019-11-24 16:29 | PCPTNOTE ---
The patient treatment was not able to be completed on 11/24/2019. Will plan to continue treatment per plan of care.
[2019-11-24 17:53] LABS: Glucose Point of Care 162 (65-105)
[2019-11-24 20:21] VITALS: PULSE 78
[2019-11-24] MEDS: AMITRIPTYLINE HCL 25 MG TABLET PO (20:21)
[2019-11-24 22:00] VITALS: BP 128/61; PULSE 81; RESP 14; TEMP 36.4; O2SAT 100
[2019-11-24 23:09] LABS: Glucose Point of Care 151 (65-105)
[2019-11-24 23:25] VITALS: PULSE 77; O2SAT 95
[2019-11-25] VITALS (7 sets, daily range): BP systolic 91–151; BP diastolic 50–74; PULSE 62–86; RESP 14–18; TEMP 36.1–36.4; O2SAT 95–100
[2019-11-25] MEDS: IBUPROFEN IV 400 MG in SODIUM CHLORIDE 0.9% IV 100 ML 200 MG IVPB ×3 (02:44→16:46)
[2019-11-25] MEDS: AMPICILLIN SULB 3 GM/NS 100 ML 3 GM/100 ML VIAL IVPB ×4 (04:41→21:12)
[2019-11-25] MEDS: MORPHINE SULFATE 4 MG/ML INJ IV PUSH ×2 (04:42→21:11)
[2019-11-25 05:41] LABS: Hematocrit 29.8 % (42.0-52.0); Hemoglobin 9.6 g/dL (14.0-18.0); Mean Corpuscular HGB Conc 32.2 g/dl (32-36); Mean Corpuscular Hemoglobin 29.4 pg (26-34); Mean Corpuscular Volume 91.4 fl (80-100); Mean Platelet Volume 10.4 fl (7.4-10.4); Platelet Count Result 352 k/mm3 (150-375); Red Blood Count 3.26 M/mm3 (4.6-6.20); Red Cell Distribution Width 12.5 % (11.5-14.5); White Blood Count 10.7 K/mm3 (4.5-10.0)
[2019-11-25 05:57] LABS: Blood Urea Nitrogen 11 mg/dL (9-20); Calcium 8.9 mg/dL (8.4-10.2); Carbon Dioxide 26 mmol/L (22-30); Chloride 98 mmol/L (98-107); Estimated CRCL calculation 79 ml/min; Estimated Glomerular Filt Rate > 60; Glucose 208 mg/dL (75-110); Potassium 3.4 mmol/L (3.4-5.0); Sodium 138 mmol/L (137-145)
[2019-11-25] MEDS: FLUTICASONE PROPIONATE 0.05% NA SPR 16 GM BTL (*BKC) 2 SPRAY NASAL (08:08)
[2019-11-25] MEDS: ROSUVASTATIN 10 MG TABLET 40 MG PO (08:09)
[2019-11-25] MEDS: RIVAROXABAN 10 MG TABLET PO (08:09)
[2019-11-25] MEDS: carvediloL 25 MG TABLET PO ×2 (08:09→21:20)
[2019-11-25] MEDS: VITAMIN B COMPLEX CAPSULE 1 CAP PO (08:09)
[2019-11-25] MEDS: CHOLECALCIFEROL 400 UNITS TABLET (VIT D) PO (08:09)
[2019-11-25] MEDS: ASPIRIN 81 MG ENTERIC TABLET PO (08:09)
[2019-11-25] MEDS: MONTELUKAST SODIUM 10 MG TABLET PO (08:09)
[2019-11-25] MEDS: FAMOTIDINE 20 MG/2 ML VIAL IV PUSH ×2 (08:10→21:21)
[2019-11-25 09:20] LABS: Glucose Point of Care 175 (65-105)
[2019-11-25] MEDS: INSULIN GLARGINE (*BKC) 100 UNITS/ML 25 UNITS SUB-Q (09:23)
[2019-11-25] MEDS: INSULIN ASPART (*BKC) 100 UNITS/ML SUB-Q (11:48)
[2019-11-25 12:06] LABS: Glucose Point of Care 240 (65-105)
--- NOTE | 2019-11-25 13:35 | PCPTNOTE ---
Patient refused treatment this session due to fatigue this date. Reported L LE increase soreness and pain from lift yesterday wants to rest.
--- NOTE | 2019-11-25 15:48 | PM.IMPN ---
Progress Note: A&P Assessment and Plan (1) Cellulitis in diabetic foot: Code(s): E11.628 - Type 2 diabetes mellitus with other skin complications; L03.119 - Cellulitis of unspecified part of limb Status: Chronic Assessment and Plan: 11/25/19 15:48 Patient is 64-year-old male with history of uncontrolled diabetes and peripheral vascular disease patient with chronic diabetic foot ulcer and status post amputation of the toes and debridement of the wound had been seen by at the wound clinic and was referred back to the emergency department is wound is getting progressively worse, patient was seen by orthopedic surgeon and evaluate the patient, wanted to continue IV antibiotics for now continue to monitor and patient may need further amputation of his right foot, patient is wound treated with vancomycin will add Unasyn to provide broad coverage as wound culture is growing some gram negative organism as well as staph, patient was taken to the OR by orthopedic surgeon on 11/22 and had BKA of right lower extremity, POD #3, patient states the pain was worse 11/22 after the anesthesia wore off now the pain is better this morning, is working with physical therapy he is able to transfer himself from bed to the wheelchair, plan is to discharge patient to [facility] for rehab patient was seen by Dr. Louise on 11/24 recommended to continue antibiotics. (2) S/P debridement: Code(s): Z98.890 - Other specified postprocedural states Status: Acute Assessment and Plan: Treat with vancomycin as ordred. Will add Unasyn, Dr. Boyd to follow.wound vac off, patient wound is growing Staph aureus will consult Dr. hernandez for his recommendation (3) Peripheral vascular disease: Code(s): I73.9 - Peripheral vascular disease, unspecified Status: Acute Assessment and Plan: Monitor pulses. has been seen by Dr. BEARDEN (4) CHF (congestive heart failure): Code(s): I50.9 - Heart failure, unspecified Status: Chronic Assessment and Plan: Continue furosemide as ordred. correg (5) Diabetes 1.5, managed as type 2: Code(s): E13.9 - Other specified diabetes mellitus without complications Status: Chronic Assessment and Plan: Monitor blood glucose ac/hs. Continue with Novolog sliding scale. Continue with Januvia and Lantus. (6) COPD (chronic obstructive pulmonary disease): Code(s): J44.9 - Chronic obstructive pulmonary disease, unspecified Status: Chronic Assessment and Plan: Continue with ventolin as ordered.singular (7) Diabetic polyneuropathy associated with type 2 diabetes mellitus: Code(s): E11.42 - Type 2 diabetes mellitus with diabetic polyneuropathy Status: Acute Assessment and Plan: keep sugars under control (8) Gastroesophageal reflux disease without esophagitis: Code(s): K21.9 - Gastro-esophageal reflux disease without esophagitis Status: Acute Assessment and Plan: Zofran PRN for nausea. (9) HLD (hyperlipidemia): Code(s): E78.5 - Hyperlipidemia, unspecified Status: Acute Assessment and Plan: Continue rosuvastatin as ordered. (10) Vitamin D deficiency: Code(s): E55.9 - Vitamin D deficiency, unspecified Status: Acute Assessment and Plan: Continue vitamin D as ordered. (11) History of ileostomy: Code(s): Z98.890 - Other specified postprocedural states Status: Chronic Assessment and Plan: he can manage on his own (12) Obstructive sleep apnea treated with BiPAP: Code(s): G47.33 - Obstructive sleep apnea (adult) (pediatric) Status: Chronic Assessment and Plan: Continue with home Bipap. (13) Hypertension: Qualifiers: Hypertension type: essential hypertension Qualified Code(s): I10 - Essential (primary) hypertension Code(s): I10 - Essential (primary) hypertension Status: Chronic Assessment and Plan: Continu
--- NOTE | 2019-11-25 16:53 | PCOTNOTE ---
The patient treatment was not able to be completed on [11/25/2019]. Will plan to continue treatment per plan of care.
[2019-11-25 17:03] LABS: Glucose Point of Care 199 (65-105)
[2019-11-25] MEDS: AMITRIPTYLINE HCL 25 MG TABLET PO (21:20)
[2019-11-25 21:57] LABS: Glucose Point of Care 208 (65-105)
[2019-11-26] MEDS: IBUPROFEN IV 400 MG in SODIUM CHLORIDE 0.9% IV 100 ML 200 MG IVPB ×3 (03:40→17:26)
[2019-11-26] MEDS: AMPICILLIN SULB 3 GM/NS 100 ML 3 GM/100 ML VIAL IVPB (03:41)
[2019-11-26 04:36] VITALS: PULSE 62; O2SAT 96
[2019-11-26 06:00] VITALS: BP 148/75; PULSE 89; RESP 16; TEMP 36.1; O2SAT 99
[2019-11-26 06:03] LABS: Hematocrit 30.6 % (42.0-52.0); Mean Corpuscular HGB Conc 32.7 g/dl (32-36); Mean Corpuscular Hemoglobin 29.5 pg (26-34); Mean Corpuscular Volume 90.3 fl (80-100); Mean Platelet Volume 9.9 fl (7.4-10.4); Platelet Count Result 397 k/mm3 (150-375); Red Blood Count 3.39 M/mm3 (4.6-6.20); Red Cell Distribution Width 12.5 % (11.5-14.5); White Blood Count 11.1 K/mm3 (4.5-10.0)
[2019-11-26 06:18] LABS: Blood Urea Nitrogen 10 mg/dL (9-20); Calcium 9.2 mg/dL (8.4-10.2); Carbon Dioxide 27 mmol/L (22-30); Chloride 102 mmol/L (98-107); Estimated CRCL calculation 88 ml/min; Estimated Glomerular Filt Rate > 60; Glucose 210 mg/dL (75-110); Potassium 3.3 mmol/L (3.4-5.0); Sodium 138 mmol/L (137-145)
[2019-11-26 08:01] LABS: Glucose Point of Care 153 (65-105)
[2019-11-26] MEDS: ASPIRIN 81 MG ENTERIC TABLET PO (09:32)
[2019-11-26] MEDS: RIVAROXABAN 10 MG TABLET PO (09:32)
[2019-11-26] MEDS: POTASSIUM CHLORIDE 20 MEQ PACKET (FOR LIQUID) 40 MEQ PO (09:32)
[2019-11-26] MEDS: MONTELUKAST SODIUM 10 MG TABLET PO (09:32)
[2019-11-26] MEDS: ROSUVASTATIN 10 MG TABLET 40 MG PO (09:32)
[2019-11-26] MEDS: VITAMIN B COMPLEX CAPSULE 1 CAP PO (09:32)
[2019-11-26] MEDS: CHOLECALCIFEROL 400 UNITS TABLET (VIT D) PO (09:32)
[2019-11-26] MEDS: FAMOTIDINE 20 MG/2 ML VIAL IV PUSH ×2 (09:32→22:24)
[2019-11-26 09:33] VITALS: PULSE 107
[2019-11-26] MEDS: carvediloL 25 MG TABLET PO ×2 (09:33→22:24)
[2019-11-26] MEDS: INSULIN GLARGINE (*BKC) 100 UNITS/ML 25 UNITS SUB-Q (09:38)
[2019-11-26 12:23] LABS: Glucose Point of Care 171 (65-105)
[2019-11-26 14:00] VITALS: BP 139/66; PULSE 104; RESP 16; TEMP 36.2; O2SAT 99
--- NOTE | 2019-11-26 16:01 | PM.IMPN ---
Progress Note: A&P Assessment and Plan (1) Cellulitis in diabetic foot: Code(s): E11.628 - Type 2 diabetes mellitus with other skin complications; L03.119 - Cellulitis of unspecified part of limb Status: Chronic Assessment and Plan: 11/26/19 16:01 Patient is 64-year-old male with history of uncontrolled diabetes and peripheral vascular disease patient with chronic diabetic foot ulcer and status post amputation of the toes and debridement of the wound had been seen by at the wound clinic and was referred back to the emergency department is wound is getting progressively worse, patient was seen by orthopedic surgeon and evaluate the patient, wanted to continue IV antibiotics for now continue to monitor and patient may need further amputation of his right foot, patient is wound treated with vancomycin will add Unasyn to provide broad coverage as wound culture is growing some gram negative organism as well as staph, patient was taken to the OR by orthopedic surgeon on 11/22 and had BKA of right lower extremity, POD #3, patient states the pain was worse 11/22 after the anesthesia wore off now the pain is better this morning, is working with physical therapy he is able to transfer himself from bed to the wheelchair, patient clinically is improving he still requiring IV pain medication seen by his orthopedic surgeon recommending to monitor 1 more day possibly discharge him tomorrow with home health (2) S/P debridement: Code(s): Z98.890 - Other specified postprocedural states Status: Acute Assessment and Plan: Treat with vancomycin as ordred. Will add Unasyn, Dr. Boyd to follow.wound vac off, discussed with Dr. Louise the infection was removed by amputation be continued antibiotics for 72 hours and is clinically stable will stop antibiotics (3) Peripheral vascular disease: Code(s): I73.9 - Peripheral vascular disease, unspecified Status: Acute Assessment and Plan: Monitor pulses. has been seen by Dr. BEARDEN (4) CHF (congestive heart failure): Code(s): I50.9 - Heart failure, unspecified Status: Chronic Assessment and Plan: Continue furosemide as ordred. correg (5) Diabetes 1.5, managed as type 2: Code(s): E13.9 - Other specified diabetes mellitus without complications Status: Chronic Assessment and Plan: Monitor blood glucose ac/hs. Continue with Novolog sliding scale. Continue with Januvia and Lantus. (6) COPD (chronic obstructive pulmonary disease): Code(s): J44.9 - Chronic obstructive pulmonary disease, unspecified Status: Chronic Assessment and Plan: Continue with ventolin as ordered.singular (7) Diabetic polyneuropathy associated with type 2 diabetes mellitus: Code(s): E11.42 - Type 2 diabetes mellitus with diabetic polyneuropathy Status: Acute Assessment and Plan: keep sugars under control (8) Gastroesophageal reflux disease without esophagitis: Code(s): K21.9 - Gastro-esophageal reflux disease without esophagitis Status: Acute Assessment and Plan: Zofran PRN for nausea. (9) HLD (hyperlipidemia): Code(s): E78.5 - Hyperlipidemia, unspecified Status: Acute Assessment and Plan: Continue rosuvastatin as ordered. (10) Vitamin D deficiency: Code(s): E55.9 - Vitamin D deficiency, unspecified Status: Acute Assessment and Plan: Continue vitamin D as ordered. (11) History of ileostomy: Code(s): Z98.890 - Other specified postprocedural states Status: Chronic Assessment and Plan: he can manage on his own (12) Obstructive sleep apnea treated with BiPAP: Code(s): G47.33 - Obstructive sleep apnea (adult) (pediatric) Status: Chronic Assessment and Plan: Continue with home Bipap. (13) Hypertension: Qualifiers: Hypertension type: essential hypertension Qualified Code(s): I10 - Essential (primary) hy
--- NOTE | 2019-11-26 16:17 | PM.PNORT ---
Progress Note: A&P Assessment and Plan (1) Encounter for orthopedic follow-up care: Onset Date: 11/22/19 Code(s): Z47.89 - Encounter for other orthopedic aftercare Status: Acute Assessment and Plan: postoperative day #4 right below-knee amputation. Pain improving. Still using IV ibuprofen. Occasionally requiring IV pain medication. Low potassium being replaced, otherwise lab stable. Patient is going to hold off on rehab until he can bear weight on both legs. If does well overnight and pain is under control without IV medicine plan for home with home health. Subjective Subjective Date/Time Seen: 11/26/19 14:17 Patient up to chair. States pain in right leg with movement and therapy. Better however compared to over the weekend Exam Const: General: comfortable and no acute distress HENMT: Mouth: Yes moist mucous membranes Eyes: General: appearance normal, both eyes and all related structures Neck: Neck: supple and no JVD Resp: Effort & Inspection: normal respiratory effort Cardio: Rate: regular rate Rhythm: regular rhythm GI: GI Palp: Yes Soft to palpation Other: Well-healed mid abdominal scar. Ileostomy Right Middle Quadrant Skin: General skin exam: erythema Wounds: wounds noted Other: See extremity exam Neuro: Cognition (Neuro): normal cognition Speech: normal speech Sensory Exam: No normal sensation Extrem: Right lower extremity: hip/thigh, knee, lower leg and foot Left lower extremity: hip/thigh, knee and lower leg (BKA ) Other: Right BKA. Cast in place. Well fitted. No skin irritation at the proximal portion of cast. Left BKA. Incision well-healed. No signs of infection. Psych: Mental Status: mental status grossly normal Objective Data Vital Signs Vital Signs: Vital Signs - 24 hr 11/25/19 20:56 11/25/19 21:20 11/25/19 23:55 Temperature 97 F L Pulse Rate 86 62 65 Respiratory Rate 16 Blood Pressure 151/74 H Pulse Oximetry 100 96 11/26/19 04:36 11/26/19 06:00 11/26/19 09:33 Temperature 97 F L Pulse Rate 62 89 107 H Respiratory Rate 16 Blood Pressure 148/75 H Pulse Oximetry 96 99 Intake/Output Intake/Output: Intake & Output 11/23/19 11/24/19 11/25/19 11/26/19 23:59 23:59 23:59 23:59 Intake Total 3928 6420 8294 1790 Output Total 2998 3076 0966 1450 Balance 1024 -155 2264 340 Meds/Results Medications: Active Medications Generic Name Dose Route Start Last Admin Trade Name Freq PRN Reason Stop Dose Admin Hydrocodone Bitart/Acetaminophen 1 tab 11/21/19 09:36 11/24/19 17:37 [place] 5-325 Mg PO 1 tab Q6H PRN Administration Pain Rated 4-6 Albuterol 1 puff 11/19/19 15:30 Proventil Hfa INHALATION QID PRN Shortness Of Breath Or Wheezing Alprazolam 0.25 mg 11/19/19 15:30 11/24/19 19:18 Xanax PO 0.25 mg TID PRN Administration anxiety Amitriptyline HCl 25 mg 11/19/19 21:00 11/25/19 21:20 Elavil PO 25 mg HS LEXUS Administration Aspirin 81 mg 11/20/19 09:00 11/26/19 09:32 Aspirin Ec PO 81 mg DAILY LEXUS Administration Carvedilol 25 mg 11/19/19 21:00 11/26/19 09:33 Coreg PO 25 mg Q12HR LEXUS Administration Diltiazem HCl 300 mg 11/20/19 09:00 11/26/19 09:36 Cardizem Cd PO 300 mg DAILY LEXUS Administration Famotidine 20 mg 11/19/19 21:00 11/26/19 09:32 Pepcid Iv IV PUSH 20 mg Q12HR LEXUS Administration Fluticasone Propionate 2 spray 11/19/19 15:30 11/25/19 08:08 Flonase 0.05% Nasal [place] NASAL 2 spray DAILY PRN Administration Allergy Symptoms Ibuprofen 400 mg/ Sodium 104 mls @ 200 mls/hr 11/22/19 12:57 11/26/19 10:32 Chloride IVPB Infused Q6H PRN Infusion Pain Rated 4-6 Insulin Aspart 4 - 8 units 11/19/19 17:00 11/26/19 11:58 Novolog SUB-Q Not Given TIDWM [facility] Protocol Insulin Glargine 25 units 11/20/19 09:00 11/26/19 09:38 Lantus SUB-Q 25 units DAILY LEXUS Administration Mo
[2019-11-26 17:15] LABS: Glucose Point of Care 171 (65-105)
[2019-11-26 22:00] VITALS: BP 137/68; PULSE 89; RESP 16; TEMP 36.3; O2SAT 100
[2019-11-26 22:24] VITALS: PULSE 67
[2019-11-26] MEDS: MORPHINE SULFATE 4 MG/ML INJ IV PUSH (22:24)
[2019-11-26] MEDS: AMITRIPTYLINE HCL 25 MG TABLET PO (22:25)
[2019-11-26 23:14] LABS: Glucose Point of Care 164 (65-105)
[2019-11-27] MEDS: IBUPROFEN IV 400 MG in SODIUM CHLORIDE 0.9% IV 100 ML 200 MG IVPB ×2 (00:02→06:35)
[2019-11-27 01:48] VITALS: PULSE 67; O2SAT 95
[2019-11-27 06:00] VITALS: BP 132/79; PULSE 86; RESP 16; TEMP 36.7; O2SAT 99
[2019-11-27 06:37] LABS: Hemoglobin 10.6 g/dL (14.0-18.0); Mean Corpuscular HGB Conc 32.1 g/dl (32-36); Mean Corpuscular Hemoglobin 29.4 pg (26-34); Mean Corpuscular Volume 91.4 fl (80-100); Mean Platelet Volume 10.1 fl (7.4-10.4); Platelet Count Result 505 k/mm3 (150-375); Red Blood Count 3.61 M/mm3 (4.6-6.20); Red Cell Distribution Width 12.6 % (11.5-14.5); White Blood Count 11.9 K/mm3 (4.5-10.0)
[2019-11-27 06:46] LABS: Blood Urea Nitrogen 14 mg/dL (9-20); Calcium 9.7 mg/dL (8.4-10.2); Carbon Dioxide 25 mmol/L (22-30); Chloride 105 mmol/L (98-107); Estimated CRCL calculation 79 ml/min; Estimated Glomerular Filt Rate > 60; Glucose 195 mg/dL (75-110); Potassium 3.7 mmol/L (3.4-5.0); Sodium 141 mmol/L (137-145)
--- NOTE | 2019-11-27 08:03 | PM.PNORT ---
Progress Note: A&P Assessment and Plan (1) Encounter for orthopedic follow-up care: Onset Date: 11/22/19 Code(s): Z47.89 - Encounter for other orthopedic aftercare Status: Acute Assessment and Plan: POD #5, pain better. Cast in place. D/C home, probably doesn't need home health until cast off. Subjective Subjective Date/Time Seen: 11/27/19 08:03 No new c/o. RT leg pain well controlled Exam Const: General: comfortable and no acute distress HENMT: Mouth: Yes moist mucous membranes Eyes: General: appearance normal, both eyes and all related structures Neck: Neck: supple and no JVD Resp: Effort & Inspection: normal respiratory effort Cardio: Rate: regular rate Rhythm: regular rhythm GI: GI Palp: Yes Soft to palpation Other: Well-healed mid abdominal scar. Ileostomy Right Middle Quadrant Skin: General skin exam: erythema Wounds: wounds noted Other: See extremity exam Neuro: Cognition (Neuro): normal cognition Speech: normal speech Sensory Exam: No normal sensation Extrem: Right lower extremity: hip/thigh, knee, lower leg and foot Left lower extremity: hip/thigh, knee and lower leg (BKA ) Other: Right BKA. Cast in place. Well fitted. No skin irritation at the proximal portion of cast. Left BKA. Incision well-healed. No signs of infection. Psych: Mental Status: mental status grossly normal Objective Data Vital Signs Vital Signs: Vital Signs - 24 hr 11/26/19 09:33 11/26/19 14:00 11/26/19 22:00 Temperature 97.1 F L 97.4 F L Pulse Rate 107 H 104 H 89 Respiratory Rate 16 16 Blood Pressure 139/66 137/68 Pulse Oximetry 99 100 11/26/19 22:24 11/27/19 01:48 11/27/19 06:00 Temperature 98.0 F Pulse Rate 67 67 86 Respiratory Rate 16 Blood Pressure 132/79 Pulse Oximetry 95 99 Intake/Output Intake/Output: Intake & Output 11/24/19 11/25/19 11/26/19 11/27/19 23:59 23:59 23:59 23:59 Intake Total 4270 3864 4080 200 Output Total 4425 1600 2250 675 Balance -155 2264 1830 -475 Meds/Results Medications: Active Medications Generic Name Dose Route Start Last Admin Trade Name Freq PRN Reason Stop Dose Admin Hydrocodone Bitart/Acetaminophen 1 tab 11/21/19 09:36 11/24/19 17:37 [place] 5-325 Mg PO 1 tab Q6H PRN Administration Pain Rated 4-6 Albuterol 1 puff 11/19/19 15:30 Proventil Hfa INHALATION QID PRN Shortness Of Breath Or Wheezing Alprazolam 0.25 mg 11/19/19 15:30 11/24/19 19:18 Xanax PO 0.25 mg TID PRN Administration anxiety Amitriptyline HCl 25 mg 11/19/19 21:00 11/26/19 22:25 Elavil PO 25 mg HS LEXUS Administration Aspirin 81 mg 11/20/19 09:00 11/26/19 09:32 Aspirin Ec PO 81 mg DAILY LEXUS Administration Carvedilol 25 mg 11/19/19 21:00 11/26/19 22:24 Coreg PO 25 mg Q12HR LEXUS Administration Diltiazem HCl 300 mg 11/20/19 09:00 11/26/19 09:36 Cardizem Cd PO 300 mg DAILY LEXUS Administration Famotidine 20 mg 11/19/19 21:00 11/26/19 22:24 Pepcid Iv IV PUSH 20 mg Q12HR LEXUS Administration Fluticasone Propionate 2 spray 11/19/19 15:30 11/25/19 08:08 Flonase 0.05% Nasal [place] NASAL 2 spray DAILY PRN Administration Allergy Symptoms Ibuprofen 400 mg/ Sodium 104 mls @ 200 mls/hr 11/22/19 12:57 11/27/19 07:07 Chloride IVPB Infused Q6H PRN Infusion Pain Rated 4-6 Insulin Aspart 4 - 8 units 11/19/19 17:00 11/26/19 17:25 Novolog SUB-Q Not Given TIDWM [facility] Protocol Insulin Glargine 25 units 11/20/19 09:00 11/26/19 09:38 Lantus SUB-Q 25 units DAILY LEXUS Administration Montelukast Sodium 10 mg 11/20/19 09:00 11/26/19 09:32 Singulair PO 10 mg DAILY LEXUS Administration Morphine Sulfate 4 mg 11/19/19 12:14 11/26/19 22:24 Morphine Sulfate Inj IV PUSH 4 mg Q2H PRN Administration Pain Rated 7-10 Ondansetron HCl 4 mg 11/22/19 12:57 Zofran Inj IV PUSH Q6H PRN Nausea
[2019-11-27] MEDS: INSULIN GLARGINE (*BKC) 100 UNITS/ML 25 UNITS SUB-Q (09:00)
[2019-11-27 09:02] VITALS: PULSE 77
[2019-11-27] MEDS: carvediloL 25 MG TABLET PO (09:02)
[2019-11-27] MEDS: RIVAROXABAN 10 MG TABLET PO (09:02)
[2019-11-27] MEDS: ASPIRIN 81 MG ENTERIC TABLET PO (09:03)
[2019-11-27] MEDS: FLUTICASONE PROPIONATE 0.05% NA SPR 16 GM BTL (*BKC) 2 SPRAY NASAL (09:04)
[2019-11-27] MEDS: CHOLECALCIFEROL 400 UNITS TABLET (VIT D) PO (09:04)
[2019-11-27] MEDS: VITAMIN B COMPLEX CAPSULE 1 CAP PO (09:04)
[2019-11-27] MEDS: MONTELUKAST SODIUM 10 MG TABLET PO (09:04)
[2019-11-27] MEDS: ROSUVASTATIN 10 MG TABLET 40 MG PO (09:04)
[2019-11-27] MEDS: FAMOTIDINE 20 MG/2 ML VIAL IV PUSH (09:05)
[2019-11-27 09:16] LABS: Glucose Point of Care 182 (65-105)
--- NOTE | 2019-11-27 11:23 | PM.DS ---
DS: Diagnosis Admitting Diagnosis Admitting Diagnosis: Type 2 diabetes mellitus with other skin complications Discharge Diagnosis (1) Cellulitis in diabetic foot: Code(s): E11.628 - Type 2 diabetes mellitus with other skin complications; L03.119 - Cellulitis of unspecified part of limb Status: Chronic Assessment and Plan: 11/26/19 16:01 Patient is 64-year-old male with history of uncontrolled diabetes and peripheral vascular disease patient with chronic diabetic foot ulcer and status post amputation of the toes and debridement of the wound had been seen by at the wound clinic and was referred back to the emergency department is wound is getting progressively worse, patient was seen by orthopedic surgeon and evaluate the patient, wanted to continue IV antibiotics for now continue to monitor and patient may need further amputation of his right foot, patient is wound treated with vancomycin will add Unasyn to provide broad coverage as wound culture is growing some gram negative organism as well as staph, patient was taken to the OR by orthopedic surgeon on 11/22 and had BKA of right lower extremity, POD #3, patient states the pain was worse 11/22 after the anesthesia wore off now the pain is better this morning, is working with physical therapy he is able to transfer himself from bed to the wheelchair, patient clinically is improving he still requiring IV pain medication seen by his orthopedic surgeon recommending to monitor 1 more day possibly discharge him tomorrow with home health (2) S/P debridement: Code(s): Z98.890 - Other specified postprocedural states Status: Acute Assessment and Plan: Treat with vancomycin as ordred. Will add Unasyn, Dr. Boyd to follow.wound vac off, discussed with Dr. Louise the infection was removed by amputation be continued antibiotics for 72 hours and is clinically stable will stop antibiotics (3) Peripheral vascular disease: Code(s): I73.9 - Peripheral vascular disease, unspecified Status: Acute Assessment and Plan: Monitor pulses. has been seen by Dr. BEARDEN (4) CHF (congestive heart failure): Code(s): I50.9 - Heart failure, unspecified Status: Chronic Assessment and Plan: Continue furosemide as ordred. corremeg (5) Diabetes 1.5, managed as type 2: Code(s): E13.9 - Other specified diabetes mellitus without complications Status: Chronic Assessment and Plan: Monitor blood glucose ac/hs. Continue with Novolog sliding scale. Continue with Januvia and Lantus. (6) COPD (chronic obstructive pulmonary disease): Code(s): J44.9 - Chronic obstructive pulmonary disease, unspecified Status: Chronic Assessment and Plan: Continue with ventolin as ordered.singular (7) Diabetic polyneuropathy associated with type 2 diabetes mellitus: Code(s): E11.42 - Type 2 diabetes mellitus with diabetic polyneuropathy Status: Acute Assessment and Plan: keep sugars under control (8) Gastroesophageal reflux disease without esophagitis: Code(s): K21.9 - Gastro-esophageal reflux disease without esophagitis Status: Acute Assessment and Plan: Zofran PRN for nausea. (9) HLD (hyperlipidemia): Code(s): E78.5 - Hyperlipidemia, unspecified Status: Acute Assessment and Plan: Continue rosuvastatin as ordered. (10) Vitamin D deficiency: Code(s): E55.9 - Vitamin D deficiency, unspecified Status: Acute Assessment and Plan: Continue vitamin D as ordered. (11) History of ileostomy: Code(s): Z98.890 - Other specified postprocedural states Status: Chronic Assessment and Plan: he can manage on his own (12) Obstructive sleep apnea treated with BiPAP: Code(s): G47.33 - Obstructive sleep apnea (adult) (pediatric) Status: Chronic Assessment and Plan: Continue with home Bipap. (13) Hypertension: Qualifiers:
--- NOTE | 2019-12-25 14:31 | PM.IMHP ---
H&P: HPI History of Present Illness Chief complaint: Cellulitis diabetic foot Narrative: Lee Burkett is a 64 year old male Presents to the orthopedic office for follow-up on December 12, 2019. Patient is status post right leg surgery with transtibial and fibular amputation with tibia fibular syndesmosis. Patient is 3 weeks status post amputation presents for follow-up of surgery as well as for assessment of the patient's mobility limitations and needs. Previous amputation as well, left trans tibial level, no weight-bearing left leg. Now with right leg amputation patient has no lower extremity weight-bearing ability. He is able to transfer from bed to chair using slide board. Dependent on upper extremity for transfers. Patient is limited with his upper extremities due to bilateral shoulder degenerative conditions and pain. Patient is able to transfer but has trouble with any sort of ambulation with the arms. One year ago patient was ambulatory on bilateral lower extremities. History of severe peripheral vascular disease and diabetes which led to left foot osteomyelitis which required amputation at the transtibial level. Patient required bilateral upper extremities and walker with full weight-bearing on the right leg for ambulation. Subsequently developed osteomyelitis and gangrene of the right foot. Unable to heal from salvage procedure and required transtibial amputation. Now with inability to ambulate on either lower extremity. height 5 ft 6 in. Weight 211 lb Review of Systems Constitutional: Constitutional: Denies fever(s) Eyes: Eyes: Denies blurry vision ENT: Reports Normal hearing present Cardiovascular: Cardiovascular: Denies chest pain and Denies dyspnea Respiratory: Respiratory: Denies dyspnea and Denies wheezing Gastrointestinal: Gastrointestinal: Denies abdominal pain Genitourinary: Genitourinary: Denies urinary urgency Musculoskeletal: Musculoskeletal: Reports as per HPI Integumentary/Breasts: Skin/Breast: Denies changing lesions and Denies sores Neurologic: Reports Normal hearing present, Denies behavioral changes, Denies confusion, Denies numbness and Denies convulsions Psychiatric: Psychiatric: Denies behavioral changes, Denies confusion and Denies hallucinations Endocrine: Endocrine: Denies heat intolerance Hematologic/Lymphatic: Hematologic/Lymphatic: Denies easy bleeding Allergic/Immunologic: Allergic/Immunologic: Denies wheezing PMFSH Past Medical History Medical History Alcohol abuse Amputation toe Anxiety Cardiomyopathy CHF (congestive heart failure) COPD (chronic obstructive pulmonary disease) COPD with asthma PFTs in June 2017 showed a discrepancy between FVC and VC consistent with dynamic air trapping. He did have an acute bronchodilator response. Coronary artery disease involving lower [place] heart without angina pectoris Diabetes 1.5, managed as type 2 Diabetic foot ulcer associated with diabetes mellitus due to underlying condition Diabetic peripheral neuropathy Diabetic polyneuropathy associated with type 2 diabetes mellitus Encounter for orthopedic follow-up care (11/22/19) Grade II diastolic dysfunction Pseudonormal diastolic dysfunction grade 2 noted on echocardiogram in June 2017 with ejection fraction of 55%. History of amputation of hallux History of Clostridioides difficile colitis With what sounds like toxic megacolon requiring emergent surgery and total colectomy. History of osteomyelitis Requiring several amputations and subsequent left [id number] amputation. History of shingles Hyperlipidemia Hypertension Insulin dependent diabetes mellitus Complicated by diabetic neuropathy. Hemoglobin A1c was 6.9 in April 2018. Long-term insulin use Multinodular goiter Status post fine-needle aspiration in April 2019, consistent with benign follicular nodule Obstructive sleep apnea treated with BiPAP Paroxysmal atrial fibrillatio
== END 2019-11-27 12:35 | disposition home health service (06) | DRG 240 ==
LOC: ANHED 12:17 → ANH3MED 13:18
PROVIDERS: Emergency Medicine Emergency Medical Services; Nurse Practitioner; Orthopaedic Surgery; Specialist; Admitting Provider Internal Medicine; Emergency Provider Family Medicine; PCP Family Medicine; Visit Provider Family Medicine
PROC: 0Y6H0Z2 Detachment at Right Lower Leg, Mid, Open Approach (ICD-10-PCS; CPT 27882; principal; 2019-11-22 09:00)
DX: E13.52 Other specified diabetes mellitus with diabetic peripheral angiopathy with gangrene (principal); L03.115 Cellulitis of right lower limb; I42.9 Cardiomyopathy, unspecified; L97.516 Non-pressure chronic ulcer of other part of right foot with bone involvement without evidence of necrosis; I96 Gangrene, not elsewhere classified; E13.628 Other specified diabetes mellitus with other skin complications; F10.10 Alcohol abuse, uncomplicated; F41.9 Anxiety disorder, unspecified; J44.9 Chronic obstructive pulmonary disease, unspecified; Z28.21 Immunization not carried out because of patient refusal; Z89.512 Acquired absence of left leg below knee; E13.42 Other specified diabetes mellitus with diabetic polyneuropathy; E13.621 Other specified diabetes mellitus with foot ulcer; E13.8 Other specified diabetes mellitus with unspecified complications; L97.519 Non-pressure chronic ulcer of other part of right foot with unspecified severity; E78.5 Hyperlipidemia, unspecified; Z79.4 Long term (current) use of insulin; G47.33 Obstructive sleep apnea (adult) (pediatric); I48.0 Paroxysmal atrial fibrillation; E04.2 Nontoxic multinodular goiter; Z87.891 Personal history of nicotine dependence; I50.9 Heart failure, unspecified; K21.9 Gastro-esophageal reflux disease without esophagitis; I25.10 Atherosclerotic heart disease of native coronary artery without angina pectoris; Z89.421 Acquired absence of other right toe(s); E55.9 Vitamin D deficiency, unspecified; Z93.2 Ileostomy status; I11.0 Hypertensive heart disease with heart failure
CPT/HCPCS: 36415; 73620; 80048; 80053; 80061; 80202; 81001; 83605; 83735; 84443; 85025; 85027; 85610; 85730; 86140; 87040; 87070; 87086; 87147; 87186; 87205; 88307; 88311; 93925; 94640; 96361; 96365; 96366; 96375; 96376; 97110; 97161; 97165; 97530; 99285; A9270; C1713; G0378; J0131; J0295; J0330; J1100; J1741; J1815; J1885; J2250; J2270; J2405; J2704; J3010; J3370; J7030; J7120

== ENCOUNTER 2020-02-29 17:07 | Emergency (ER) | payer OTHER, MEDICARE, SELFPAY ==
[2020-02-29] VITALS (7 sets, daily range): BP systolic 119–189; BP diastolic 71–91; PULSE 90–114; RESP 22–34; TEMP 36.8; O2SAT 88–98
--- NOTE | ~2020-02-29 | CT_ITS ---
EXAMINATION: CT soft tissue neck chest wo DATE: 02/29/2020 19:00 INDICATION: Neck mass. Dyspnea. TECHNIQUE: Computed tomography (CT) of the neck and chest was performed without intravenous contrast. The dose-length product was 1224.85 mGy-cm. Automated exposure control and iterative reconstruction technique were employed. COMPARISON: CT chest dated 04/15/2019 FINDINGS: NECK: There is a large mass in the right neck measuring 9.7 x 6.4 cm axial by 12 cm craniocaudal with adjac ent areas of nodularity in lymph node enlargement. There is masslike thickening of the palatine tonsi ls, right greater than left with shift of the airway to the left. There is severe narrowing of the na sopharynx. Mild narrowing of the right side of the oropharynx which is otherwise patent. Larynx is pa tent. Epiglottis unremarkable. There is no lytic destruction of C4 and possibly C5-C6 involving the r ight transverse processes. Small retropharyngeal effusion. Indeterminate 2.4 cm left thyroid nodule. Extensive arterial calcifications. CHEST: Multiple large nodular pulmonary metastases. Moderate loculated right and small left pleural e ffusions. There is complete opacification of the right lower lobe which may relate to tumor and/or po st obstructive pneumonia. Enlarged mediastinal and hilar lymph nodes. There is an indeterminate rim c alcified lesion right upper pericardial region adjacent to the ascending aorta measuring 3.6 x 2.7 cm which may represent calcified lymph node or calcified complex pericardial cyst. No evidence for aort ic aneurysm. There is coronary atherosclerosis. No definite osseous metastases. Evaluation of the vas cular structures limited by lack of IV contrast. IMPRESSION: 1. Constellation of findings concerning for widespread metastatic disease which may be secondary to h ead and neck primary, lung primary, metastatic disease from another primary or lymphoma. Reviewed, dictated and finalized at location A. IMPRESSION: 1. Constellation of findings concerning for widespread metastatic disease which may be secondary to head and neck primary, lung primary, metastatic disease fr om another primary or lymphoma.
--- NOTE | ~2020-02-29 | XR_ITS ---
XR chest 2V 02/29/2020 18:09 Indication: Shortness of breath, weakness. History of CHF. COPD. Procedure: AP and lateral views of the chest Comparison: Comparison to multiple prior studies sequentially, with oldest reviewed study dated 04/15. Findings: There is extensive bilateral airspace disease. Moderate right pleural effusion. Small left effusion. No pneumothorax. No acute osseous abnormality. Impression: 1: Interval development of extensive bilateral airspace disease which may represent pneumonia and/or edema. 2: Bilateral pleural effusions, right greater than left. Reviewed, dictated and finalized at location A. Impression: 1: Interval development of extensive bilateral airspace disease which may repre sent pneumonia and/or edema. 2: Bilateral pleural effusions, right greater than left.
--- NOTE | 2020-02-29 17:18 | ECG_ITS ---
Measurements Intervals [place] Rate: 93 P: 62 ND: 137 QRS: 58 QRSD: 114 T: 0 QT: 261 QTc: 325 Interpretive Statements SINUS RHYTHM INTRAVENTRICULAR CONDUCTION DELAY BORDERLINE ST-T WAVE ABNORMALITY- DIFFUSE LEADS BORDERLINE ECG Electronically Signed On 03-01-2020 7:01:05 CDT by Isaiah Castillo D.O.
[2020-02-29 17:36] LABS: Basophils Absolute Auto 0.1 K/mm3 (0.0-0.1); Basophils Percent Auto 0.6 % (0.2-1.2); Eosinophils Absolute Auto 0.2 K/mm3 (0-0.3); Eosinophils Percent Auto 1.5 % (0-4.4); Hematocrit 33.5 % (42.0-52.0); Hemoglobin 10.2 g/dL (14.0-18.0); Immature Granulocyte Percent A 0.7 % (0-0.5); Lymphocytes Absolute Auto 0.64 K/mm3 (0.9-3.2); Lymphocytes Percent Auto 4.8 % (18.3-44.2); Mean Corpuscular HGB Conc 30.4 g/dl (32-36); Mean Corpuscular Hemoglobin 26.4 pg (26-34); Mean Corpuscular Volume 86.8 fl (80-100); Mean Platelet Volume 10.2 fl (7.4-10.4); Monocytes Absolute Auto 1.2 K/mm3 (0.1-0.6); Neutrophils Absolute Auto 11.2 K/mm3 (1.3-6.7); Neutrophils Percent Auto 83.4 % (45.5-73.1); Platelet Count Result 384 k/mm3 (150-375); Red Blood Count 3.86 M/mm3 (4.6-6.20); Red Cell Distribution Width 15.5 % (11.5-14.5); White Blood Count 13.4 K/mm3 (4.5-10.0)
--- NOTE | 2020-02-29 17:40 | ED.WEAKNESS ---
HPI - Weakness General Chief complaint: Weakness <Amrik Wasserman MD - Last Filed: 03/06/20 05:32> Stated complaint: SOB <Amrik Wasserman MD - Last Filed: 03/06/20 05:32> Time Seen by Provider: 02/29/20 17:40 <Amrik Wasserman MD - Last Filed: 03/06/20 05:32> History of Present Illness HPI Narrative: 64 yo with multiple medical problems presents with weakness, SOB, and neck pain. He reports feeling poorly for quite some time. He reports feeling SOB with any activity. He is on home O2 at baseline. He reports difficulty getting around his home due to weakness. Additionally c/o pain and swelling throughout the right side of his neck. He says that this has been there for a few weeks. He has not seen anyone about it because he was afraid to leave his house. <Amrik Wasserman MD - Last Filed: 03/06/20 05:32> Related Data Home medications: Home Medications Medication Instructions Recorded Confirmed albuterol sulfate [Ventolin HFA] 1 inh INHALATION QID PRN 10/03/19 11/19/19 amitriptyline 25 mg PO HS 10/03/19 11/19/19 aspirin [Adult Low Dose Aspirin] 81 mg PO DAILY 10/03/19 11/19/19 carvedilol 25 mg PO Q12H 10/03/19 11/19/19 cholecalciferol (vitamin D3) 400 unit PO DAILY 10/03/19 11/19/19 [Vitamin D3] diltiazem HCl 300 mg PO DAILY 10/03/19 11/19/19 fluticasone propionate 1 inh INHALATION Q12H PRN 10/03/19 11/19/19 fluticasone propionate [Flonase 2 spray INTRANASAL DAILY PRN 10/03/19 11/19/19 Allergy Relief] montelukast [Singulair] 10 mg PO DAILY 10/03/19 11/19/19 rosuvastatin 40 mg PO DAILY 10/03/19 11/19/19 vitamin B complex [B 1 tablet PO DAILY 10/03/19 11/19/19 Complex-Vitamin B12] Lantus Solostar U-100 Insulin 25 unit SUB-Q DAILY 11/19/19 11/19/19 insulin lispro [Humalog U-100 8 unit SUBCUT TID 11/19/19 11/19/19 Insulin] <Amrik Wasserman MD - Last Filed: 03/06/20 05:32> Allergies/Adverse reactions: Allergies Allergy/AdvReac Type Severity Reaction Status Date / Time imipenem Allergy Mild Itching Verified 01/02/20 08:25 gabapentin Allergy Unknown GOES Verified 01/02/20 08:25 CRAZY PER SPOUSE pregabalin Allergy Unknown GOES Verified 01/02/20 08:25 CRAZY PER SPOUSE Iodinated Contrast Media AdvReac Severe Hypotension Verified 01/02/20 08:25 iohexol AdvReac Severe Hypotension Verified 01/02/20 08:25 [From CONTRAST - CT, XRAY] <Amrik Wasserman MD - Last Filed: 03/06/20 05:32> Review of Systems Review of Systems: All systems reviewed & are unremarkable except as noted in HPI and below <Amrik Wasserman MD - Last Filed: 03/06/20 05:32> Constitutional: Constitutional: Denies fever(s) <Amrik Wasserman MD - Last Filed: 03/06/20 05:32> ENT: Reports dysphagia <Amrik Wasserman MD - Last Filed: 03/06/20 05:32> Cardiovascular: Cardiovascular: Reports chest pain <Amrik Wasserman MD - Last Filed: 03/06/20 05:32> Respiratory: Respiratory: Reports cough and Reports dyspnea <Amrik Wasserman MD - Last Filed: 03/06/20 05:32> Gastrointestinal: Gastrointestinal: Denies abdominal pain and Denies nausea <Amrik Wasserman MD - Last Filed: 03/06/20 05:32> Genitourinary: Genitourinary: Denies dysuria <Amrik Wasserman MD - Last Filed: 03/06/20 05:32> Neurologic: Denies dizziness and Denies weakness <Amrik Wasserman MD - Last Filed: 03/06/20 05:32> [facility] Social History Social History: Social History Social History: The patient is and lives with his in [place]. 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 He designates his , Candice, as his surrogate decision maker and he wishes to be a full code. He is a former smoker and quit in 1999. No alcohol or drug abuse. His primary care providers Dr. Faisal Bobby. He did have 2 children and one (his daughter). Smoking packs per day: 4 Smoking cigarettes per day: 80.0 Ye
[2020-02-29 18:31] LABS: Blood Urea Nitrogen 14 mg/dL (9-20); Carbon Dioxide > 40 mmol/L (22-30); Chloride 94 mmol/L (98-107); Estimated CRCL calculation 61 ml/min; Estimated Glomerular Filt Rate > 60; Glucose 116 mg/dL (75-110); Potassium 2.7 mmol/L (3.4-5.0); Sodium 136 mmol/L (137-145)
[2020-02-29 19:14] LABS: NT Pro B Type Natriuretic Pept 515 PG/ML (5-100)
[2020-02-29 19:15] LABS: Calcium 14.3 mg/dL (8.4-10.2)
--- NOTE | 2020-02-29 19:41 | PC.NURSE ---
Pt very pleasant, states he would like something for the pain on the right side of his neck. Pt neck appears swollen, MD seen and aware.
[2020-02-29] MEDS: MORPHINE SULFATE 2 MG/ML INJ IV PUSH (20:29)
--- NOTE | 2020-02-29 21:07 | PC.NURSE ---
Daughter Sakina called and given update 2105.
--- NOTE | 2020-02-29 21:09 | PC.NURSE ---
Pt placed on 3L of oxygen due to fast respirations noted and also he's on 3L of oxygen at home.
--- NOTE | 2020-02-29 21:43 | PC.NURSE ---
Spoke with Sherly At [facility], waiting on bed assignment. She will call as soon as one becomes available.
[2020-03-01] MEDS: MORPHINE SULFATE 2 MG/ML INJ IV PUSH (00:39)
[2020-03-01 00:40] VITALS: BP 161/75; PULSE 104; RESP 21; O2SAT 97
--- NOTE | 2020-03-01 01:41 | PC.NURSE ---
Addendum entered by Sharonda Harman 03/01/20 04:11: Called [facility] for status...ETA 0500 Addendum entered by Sharonda Harman 03/01/20 02:53: Called [facility]...declined. Addendum entered by Sharonda Duarte Harman 03/01/20 02:50: Called [facility]...declined. Addendum entered by Sharonda Harman 03/01/20 02:49: Called [facility] to transport...declined, only 1 truck. Addendum entered by Sharonda Harman 03/01/20 02:45: Kenzie called with updated ETA...due to 911 calls, ETA is now [id number] - [id number] Original Note: Called [facility] to transport to [id number]. ETA [id number]
[2020-03-01 02:25] VITALS: BP 137/63; PULSE 100; RESP 36; O2SAT 93
--- NOTE | 2020-03-01 02:31 | PC.NURSE ---
Report called and given to KOKO Pérez.
[2020-03-01 04:00] VITALS: BP 152/65; PULSE 100; RESP 26; O2SAT 97
--- NOTE | 2020-03-01 05:11 | PC.NURSE ---
Cellphone was taking by who is admitted on the IMU floor after she came down to visit him.
[2020-03-01 05:16] VITALS: BP 148/66; PULSE 100; RESP 34; O2SAT 100
== END 2020-03-01 04:50 | disposition short-term general hospital (02) ==
PROVIDERS: Emergency Medicine; Emergency Provider Emergency Medicine; PCP Family Medicine
DX: R22.1 Localized swelling, mass and lump, neck (principal); J90 Pleural effusion, not elsewhere classified; J18.8 Other pneumonia, unspecified organism; Z99.81 Dependence on supplemental oxygen; Z87.891 Personal history of nicotine dependence; C79.9 Secondary malignant neoplasm of unspecified site; C80.1 Malignant (primary) neoplasm, unspecified; E13.42 Other specified diabetes mellitus with diabetic polyneuropathy; E13.51 Other specified diabetes mellitus with diabetic peripheral angiopathy without gangrene; E13.621 Other specified diabetes mellitus with foot ulcer; L97.509 Non-pressure chronic ulcer of other part of unspecified foot with unspecified severity; I25.10 Atherosclerotic heart disease of native coronary artery without angina pectoris; E78.5 Hyperlipidemia, unspecified; I10 Essential (primary) hypertension; F41.9 Anxiety disorder, unspecified; I48.0 Paroxysmal atrial fibrillation; G47.33 Obstructive sleep apnea (adult) (pediatric); Z79.4 Long term (current) use of insulin; Z79.82 Long term (current) use of aspirin; I45.9 Conduction disorder, unspecified; R94.31 Abnormal electrocardiogram [ECG] [EKG]
CPT/HCPCS: 36415; 70490; 71046; 71250; 80048; 83880; 85025; 87040; 93005; 96365; 96366; 96367; 96368; 96374; 96375; 99285; J0456; J0696; J2270; J3480